=== PATIENT | female | born 1960 | race Caucasian/White ===

== ENCOUNTER 2023-12-16 10:57 | Observation (INO) | payer MEDICARE, SELFPAY ==
[2023-12-16] VITALS (11 sets, daily range): BP systolic 108–146; BP diastolic 64–87; PULSE 84–108; RESP 15–24; TEMP 36.4–36.6; O2SAT 86–96; BMI 19.3
--- NOTE | ~2023-12-16 | XR_ITS ---
Clinical Indication: Shortness of breath PA and lateral views of the chest: Comparison: None Findings: The lungs are clear, without evidence of focal consolidation or pleural effusion. Probable COPD. Cardiomediastinal silhouette is within normal limits. Bones and soft tissues are unremarkable. Impression: Clear lungs. COPD. Reviewed, dictated and finalized at location . Impression: Clear lungs. COPD.
--- NOTE | 2023-12-16 13:19 | ECG_ITS ---
Test Date: 2023-12-16 13:43:38 Measurements Intervals Mack Rate: 78 P: 112 DE: 143 QRS: 111 QRSD: 89 T: 117 QT: 337 QTc: 384 Interpretive Statements SINUS RHYTHM ARM LEADS REVERSED [INVERTED P AND QRS IN I] BASELINE ARTIFACT- I, II, III, AVR, AVL, AVF, V1-V3 ATYPICAL ECG No previous ECG available for comparison Electronically Signed On 12-16-2023 13:48:03 CDT by Taj Fong D.O.
[2023-12-16 13:41] LABS: Basophils Percent Auto 0.2 % (0.2-1.2); Eosinophils Absolute Auto 0.1 K/mm3 (0-0.3); Eosinophils Percent Auto 1.1 % (0-4.4); Hematocrit 43.2 % (37.0-47.0); Hemoglobin 14.3 g/dL (12.0-15.0); Immature Granulocyte Absolute 0.08 K/mm3 (0.00-0.031); Immature Granulocyte Percent A 0.6 % (0-0.5); Lymphocytes Absolute Auto 2.64 K/mm3 (0.9-3.2); Mean Corpuscular HGB Conc 33.1 g/dl (32-36); Mean Corpuscular Hemoglobin 30.3 pg (26-34); Mean Corpuscular Volume 91.5 fl (80-100); Mean Platelet Volume 9.5 fl (7.4-10.4); Monocytes Percent Auto 7.6 % (2.6-8.5); Neutrophils Absolute Auto 8.7 K/mm3 (1.3-6.7); Neutrophils Percent Auto 69.5 % (45.5-73.1); Platelet Count Result 315 k/mm3 (150-375); Red Blood Count 4.72 M/mm3 (4.2-5.4); Red Cell Distribution Width 11.9 % (11.5-14.5); White Blood Count 12.6 K/mm3 (4.5-10.0)
[2023-12-16 13:51] LABS: Glucose Point of Care 115 mg/dl (65-105)
[2023-12-16 13:51] LABS: Alanine Aminotransferase 18 U/L (6-35); Albumin Level 4.1 g/dL (3.5-5.1); Alkaline Phosphatase 69 U/L (38-126); Anion Gap 8 mmol/L (4-12); Aspartate Amino Transferase 25 U/L (14-36); Bilirubin,Total 0.5 mg/dL (0.2-1.3); Blood Urea Nitrogen 14 mg/dL (7-17); Calcium 10.8 mg/dL (8.4-10.2); Carbon Dioxide 33 mmol/L (22-30); Chloride 95 mmol/L (98-107); Estimated CRCL calculation 94 ml/min; Estimated Glomerular Filt Rate > 60; Glucose 115 mg/dL (65-110); Potassium 4.1 mmol/L (3.4-5.0); Sodium 136 mmol/L (137-145)
--- NOTE | 2023-12-16 14:21 | PC.NURSE ---
lunch tray delivered to patient
--- NOTE | 2023-12-16 15:12 | ED.GENADULT ---
HPI - General Adult General Chief complaint: Shortness of Breath/Dyspnea Stated complaint: SOB Time Seen by Provider: 12/16/23 13:42 History of Present Illness HPI narrative: [age] old female presenting to the emergency department for evaluation of worsening shortness of breath. Patient does have a have a history of COPD but does not have a current bolt cutter. Patient does not have oxygen at home. Patient states that approximately 1 month ago she did have some outpatient pulmonary function testing ordered by her primary care physician, she is attempting to be evaluated by a bolt cutter but has not got any calls back. Patient states she is not on any albuterol at home. Patient presents emergency department today complaining of worsening exertional shortness of breath. Patient does appear short of breath at time of evaluation. Related Data Home Medications Medication Instructions Recorded Confirmed atorvastatin 80 mg tablet 80 mg PO DAILY 09/11/22 12/16/23 carvedilol 3.125 mg tablet 3.125 mg PO Q12H 09/11/22 12/16/23 cholecalciferol (vitamin D3) 62.5 5,000 unit PO QPM 09/11/22 12/16/23 mcg (2,500 unit) chewable tablet clopidogrel 75 mg tablet 75 mg PO DAILY 09/11/22 12/16/23 fluticasone 500 mcg-salmeterol 50 1 inh inhalation Q12H 09/11/22 12/16/23 mcg/dose blistr powdr for inhalation (Advair Diskus) multivitamin 1 tablet PO DAILY 09/11/22 12/16/23 ramipril 2.5 mg capsule 2.5 mg PO DAILY 09/11/22 12/16/23 albuterol sulfate 90 mcg/actuation 2 puff inhalation Q4H PRN 12/16/23 12/16/23 aerosol inhaler SOB/wheezing aspirin 81 mg chewable tablet 81 mg PO DAILY 12/16/23 12/16/23 (Aspirin Childrens) Allergies Allergy/AdvReac Type Severity Reaction Status Date / Time No Known Allergies Allergy Verified 12/16/23 19:32 Review of Systems Review of Systems: All systems reviewed & are unremarkable except as noted in HPI and below PMFSH Past Medical History Medical History (Updated 12/16/23 @ 20:47 by Racheal Mayo PA-C) Adhesive capsulitis of right shoulder Cancer Breast Chronic obstructive pulmonary disease Constipation History of breast cancer History of heart attack Positive colorectal cancer screening using Cologuard test Tobacco abuse Surgical History Surgical History History of lumpectomy 2014 Family History Family History Mother Cancer Heart disease Father Cancer Social History Social History Smoking packs per day: 2 Smoking cigarettes per day: 40.0 Years smoked: 50 Smoking pack-years: 100.00 Smoking status: Current every day smoker Tobacco type: cigarettes Alcohol intake: never Substance use type: marijuana Other substance usage details: daily marijuana Do You Feel Safe in your Home?: Yes Lack of Transportation: No Lack of Food: Never True Current Housing: I Have Housing Concerned About Future Housing: No Difficulty Paying Gas/Electric Bills: No Difficulty Paying for Meds: No Currently Unemployed: No Education: High School Diploma/GED Difficulty w/ Childcare or Family Care: No Living arrangements: with friend(s) Spiritual care concerns: No Exam Narrative: APPEARANCE: Uncomfortable appearing HEAD: normocephalic, atraumatic. EYES: PERRLA/EOMI, conjunctivae clear. NOSE: Normal no drainage EARS:TMS clear with good light reflex. THROAT: Pharynx clear, no exudate. NECK: Supple. No adenopathy, no masses. RESPIRATORY: Wheezing in all lung b[place]ude[place], tachypnea CARDIOVASCULAR: Regular rate and rhythm without murmurs rubs or gallops. ABDOMINAL: Soft, nontender, nondistended, normal bowel sounds MUSCULOSKELETAL: Moves all extremities. Strength/ROM intact, No edema, No calf tenderness. NEURO: Alert. Cranial nerves II through XII intact. Good gait. Good coordination
[2023-12-16] MEDS: methylPREDNISolone SOD SUCC 125 MG VIAL IV PUSH (15:20)
[2023-12-16] MEDS: ALBUTEROL SULFATE NEB 2.5 MG/3 ML INH 5 MG INHALATION (15:24)
[2023-12-16 15:58] LABS: Add Urine Microscopic? YES; Appearance Urine Clear (Clear); Bacteria Urine None Seen /hpf; Bilirubin Urine 1+ (Negative); Blood Urine Negative (Negative); Color Urine Dark Yellow (Yellow); Glucose Urine UA Negative (Negative); Ketones Urine Trace mg/dL (Negative); Leukocyte Esterase Ur 1+ LEU/UL (Negative); Nitrate Urine Negative (Negative); Protein Urine 1+ mg/dL (Negative); Specific Grav Ur 1.029 (1.001-1.035); Squamous Epithelial Cell Urine Occasional /hpf (Few); Uric Acid Crystals Urine Present /hpf; WBC Urine 0-5 /hpf (0-3); pH Urine 6.5 (5.0-9.0)
[2023-12-16 16:03] LABS: Influenza A QL RT-PCR Negative (Negative); Influenza B QL RT-PCR Negative (Negative); RSV RNA, RT-PCR Negative (Negative); SARS-CoV-2 RNA PCR Negative (Negative)
[2023-12-16] MEDS: AZITHROMYCIN 500 MG/NS 250 ML 500 MG/250 ML BAG 250 MG IVPB (17:07)
[2023-12-16] MEDS: methylPREDNISolone SOD SUCC 125 MG VIAL 60 MG IV PUSH (18:26)
--- NOTE | 2023-12-16 19:18 | ADMGEN ---
This patient, Lashon Luis, was admitted to [facility] Room 313-01. Patient/family oriented to hospital policies and general routines including ID bracelet, bed and alarms, visiting hours, pain management, procedures, bathroom and other care routines, personal items, smoking policy, room service/diet, and visiting hours. Information on how to activate the Rapid Response Team has been discussed. Patient/Family are encouraged to report perceived risks to care and to ask questions if they do not understand what they are told or what they should do.
--- NOTE | 2023-12-16 20:40 | PM.IMHP ---
H&P: HPI History of Present Illness Date/Time: 12/16/23 20:40 Chief Complaint: Shortness of breath. Narrative: This is a 62-year-old female smoker with chronic obstructive pulmonary disease, hypertension, coronary artery disease, and breast cancer presented to the emergency department via private vehicle for evaluation of shortness of breath. The patient provides the following history. She gives a 1 week history of increasing dyspnea on lesser and lesser exertion, wheezing, and an increase in cough which is productive of light green sputum. She has been using her rescue inhaler with lesser and lesser benefit and she is now getting short of breath even when going about the home. She denies fever, chills, sweats, chest and pleuritic pain, palpitations, orthopnea, lower extremity edema, calf pain, nausea, vomiting, and sweats. In the ED: She was afebrile on arrival with stable blood pressures. SpO2 has been as low as the upper 80s and she is currently on 2 L nasal cannula. Labs are significant for WBC count of 12.6, hemoglobin 14.3, sodium 136, chloride 95, BUN 14, creatinine 0.50, carbon dioxide 33. She tested negative for influenza, RSV, and COVID. Chest x-ray shows evidence of COPD but no acute findings. She was given azithromycin, ceftriaxone, methylprednisone, and a nebulizer treatment and she is being admitted in this setting for further treatment. Review of Systems Review of Systems: 12 systems were reviewed and are negative except for as per HPI. [facility] Past Medical History Medical History (Updated 12/16/23 @ 22:35 by Racheal Mayo PA-C) Breast cancer Chronic obstructive pulmonary disease Coronary artery disease Positive colorectal cancer screening using Cologuard test Tobacco abuse Surgical History Surgical History (Updated 12/16/23 @ 22:35 by Racheal Mayo PA-C) History of coronary artery stent placement History of lumpectomy 2013 Family History Family History Mother Cancer Heart disease Father Cancer Social History Social History (Updated 12/16/23 @ 22:35 by Racheal Mayo PA-C) Social History: Surrogate medical decision maker: Jesika Cade, sister. Code status: Full code. Smoking packs per day: 2 Smoking cigarettes per day: 40.0 Years smoked: 50 Smoking pack-years: 100.00 Smoking status: Current every day smoker Tobacco type: cigarettes Alcohol intake: never Substance use type: marijuana Other substance usage details: daily marijuana Do You Feel Safe in your Home?: Yes Lack of Transportation: No Lack of Food: Never True Current Housing: I Have Housing Concerned About Future Housing: No Difficulty Paying Gas/Electric Bills: No Difficulty Paying for Meds: No Currently Unemployed: No Education: High School Diploma/GED Difficulty w/ Childcare or Family Care: No Living arrangements: with friend(s) Spiritual care concerns: No Meds Home Medications and Allergies Home Medications Medication Instructions Recorded Confirmed Type atorvastatin 80 mg tablet 80 mg PO DAILY 09/11/22 12/16/23 History carvedilol 3.125 mg tablet 3.125 mg PO Q12H 09/11/22 12/16/23 History cholecalciferol (vitamin D3) 62.5 5,000 unit PO QPM 09/11/22 12/16/23 History mcg (2,500 unit) chewable tablet clopidogrel 75 mg tablet 75 mg PO DAILY 09/11/22 12/16/23 History fluticasone 500 mcg-salmeterol 50 1 inh inhalation Q12H 09/11/22 12/16/23 History mcg/dose blistr powdr for inhalation (Advair Diskus) multivitamin 1 tablet PO DAILY 09/11/22 12/16/23 History ramipril 2.5 mg capsule 2.5 mg PO DAILY 09/11/22 12/16/23 History albuterol sulfate 90 mcg/actuation 2 puff inhalation Q4H PRN 12/16/23 12/16/23 History aerosol inhaler SOB/wheezing aspirin 81 mg chewable tablet 81 mg PO DAILY 12/16/23 12/16/23 History (Aspirin Childrens) Allergies Allergy/AdvReac Type Severity Reaction Status Date /
[2023-12-17] VITALS (19 sets, daily range): BP systolic 125–131; BP diastolic 55–70; PULSE 80–94; RESP 16–22; TEMP 36.5–36.9; O2SAT 92–100; BMI 19.3
[2023-12-17] MEDS: methylPREDNISolone SOD SUCC 125 MG VIAL 60 MG IV PUSH ×4 (00:54→21:43)
[2023-12-17] MEDS: carvediloL 3.125 MG TABLET PO ×3 (00:54→21:44)
[2023-12-17] MEDS: ALBUTEROL SULFATE NEB 2.5 MG/3 ML INH INHALATION ×3 (02:33→13:34)
[2023-12-17 07:26] LABS: Hematocrit 39.2 % (37.0-47.0); Hemoglobin 12.9 g/dL (12.0-15.0); Mean Corpuscular HGB Conc 32.9 g/dl (32-36); Mean Corpuscular Hemoglobin 30.6 pg (26-34); Mean Corpuscular Volume 93.1 fl (80-100); Mean Platelet Volume 9.5 fl (7.4-10.4); Platelet Count Result 305 k/mm3 (150-375); Red Blood Count 4.21 M/mm3 (4.2-5.4); Red Cell Distribution Width 11.9 % (11.5-14.5); White Blood Count 9.5 K/mm3 (4.5-10.0)
[2023-12-17 07:35] LABS: Anion Gap 5 mmol/L (4-12); Blood Urea Nitrogen 15 mg/dL (7-17); Calcium 9.7 mg/dL (8.4-10.2); Carbon Dioxide 32 mmol/L (22-30); Chloride 99 mmol/L (98-107); Estimated CRCL calculation 91 ml/min; Estimated Glomerular Filt Rate > 60; Glucose 162 mg/dL (65-110); Potassium 4.6 mmol/L (3.4-5.0); Sodium 136 mmol/L (137-145)
[2023-12-17] MEDS: MULTIVITAMINS THERAPEUTIC TAB (*BKC) 1 TABLET PO (08:03)
[2023-12-17] MEDS: CLOPIDOGREL BISULFATE 75 MG TABLET PO (08:03)
[2023-12-17] MEDS: ASPIRIN 81 MG CHEWABLE TABLET PO (08:03)
[2023-12-17] MEDS: ATORVASTATIN 40 MG TABLET 80 MG PO (08:03)
--- NOTE | 2023-12-17 10:43 | PM.IMPN ---
Progress Note: A&P Assessment and Plan (1) Acute hypoxic respiratory failure: Code(s): J96.01 - Acute respiratory failure with hypoxia Status: Acute Assessment and Plan: 12/17/23: Likely due to COPD exacerbation She was given 125 mg IV push of Solu-Medrol Will continue Solu-Medrol 60 mg IV push Q 8 hour DC albuterol neb treatments Start Duonebs q6h Continue azithromycin Wean O2 for sat greater than 92% Will start Singulair, Claritin, and Flonase today for prevention Patient refuses COVID, Flu, pneumonia and RSV vaccines however patient was educated on risk of these illnesses with her known lung disease history Pulmonology consulted for further assistance and close follow up outpatient Will need nebulizer with duoneb treatments at home as well as home O2 evaluation, possibly nocturnal O2 requirements. Pulmonary rehab will need to be ordered upon discharge. (2) Acute exacerbation of chronic obstructive pulmonary disease: Code(s): J44.1 - Chronic obstructive pulmonary disease with (acute) exacerbation Status: Acute Assessment and Plan: See above plan of care (3) Acute UTI: Code(s): N39.0 - Urinary tract infection, site not specified Status: Acute Assessment and Plan: 12/17/23: UA showing 1+ urine protein, trace ketone, 1+ urine bilirubin, 1+ leukocyte, 6-10 urine RBC Urine culture pending Continue Rocephin for now (4) Tobacco abuse: Code(s): Z72.0 - Tobacco use Status: Acute Assessment and Plan: 12/17/23: Current every day smoker, smokes 2 packs per day x 50 years Educated on smoking cessation (5) Coronary artery disease: Code(s): I25.10 - Atherosclerotic heart disease of [place] coronary artery without angina pectoris Status: Acute Assessment and Plan: 12/17/23: Continue aspirin, atorvastatin, Plavix Time Spent With Patient Time with patient: Greater than 35 minutes Subjective Date/time seen: 12/17/23 10:43 Interval history: Interval history: This is a 62-year-old female with a significant past medical history of COPD, current every day smoker who presented to the hospital on 12/16/2023 with complaints of shortness of breath. Workup in the hospital included chest x-ray shows COPD. Initial labs showed a white blood cell count of 12.6, sodium 136, chloride 95, otherwise unremarkable. UA was obtained which showed 1+ urine protein, trace ketone, 1 urine bilirubin, 1+ leukocyte, 6-10 urine RBC. Respiratory panel was negative for influenza a and B, RSV, COVID. Urine culture was obtained and is pending. EKG showed sinus rhythm at the rate of 78, QTC 384. Patient was started on Rocephin and azithromycin, given 125 mg IV push of Solu-Medrol, and received a breathing treatment while in the ED. Subjective: Patient denies any fever, chills, nausea, vomiting, diarrhea, abdominal pain, chest pain. Patient endorses shortness of breath for the past week when she came down with upper respiratory infection. She only has an albuterol inhaler at home and was not finding any relief with use. She does not follow with a stationary equipment mechanic currently. She denies having a nebulizer at home or on any medications for allergies. She states she refuses to get vaccinations such as COVID, Flu, pneumonia, RSV. She admits to a long smoking history and has failed smoking cessation in the past. She is up to 2 packs per day which likely contributes to her exacerbations. Currently she is on 1.5 L nasal cannula. Labs and imaging reviewed. Review of Systems Review of Systems: All systems reviewed & are unremarkable except as noted in HPI and below Constitutional: Constitutional: Reports as per HPI and Reports no additional constitutional complaints Eyes: Eyes: Reports as per HPI and Reports no additional eye complaints ENT: Reports system reviewed and no additional complaints, except as documented and Reports as per HPI Cardiovascular: Cardiovascular: Re
[2023-12-17] MEDS: AZITHROMYCIN 250 MG TABLET 500 MG PO (12:07)
--- NOTE | 2023-12-17 13:24 | P.CDI_ITS ---
CDI Query Clarification Request BMI: 19.3 Nutritional Diagnostic Statement: Please refer to the comprehensive nutrition assessment for further information. If you agree with diagnosis of Moderate protein calorie malnutrition related to inadequate energy intake and increased energy needs in the setting of COPD as evidenced by pt report of reduced po intake for greater than 1 month, a reported -10% wt loss x 6 months, and NFPE findings of moderate subcutaneous fat loss (cheeks) and moderate muscle wasting (temples). Please specify severity if known: * Mild * Moderate * Severe * Other/Unknown <Aleida Devries RN - Last Filed: 12/17/23 13:24> Clarified Diagnosis Clarified Diagnosis: Moderate <Elisa Vaughn APRN - Last Filed: 12/17/23 13:48>
[2023-12-17] MEDS: LORATADINE 10 MG TABLET PO (15:11)
--- NOTE | 2023-12-17 15:44 | PM.CNPUL ---
Assessment and Plan Assessment and plan (1) Acute hypoxic respiratory failure: Code(s): J96.01 - Acute respiratory failure with hypoxia Status: Acute (2) Acute exacerbation of chronic obstructive pulmonary disease: Code(s): J44.1 - Chronic obstructive pulmonary disease with (acute) exacerbation Status: Acute Assessment and Plan: 62-year-old female with a known history of advanced COPD presented with shortness of breath related to COPD exacerbation. Apparently, this is her first hospitalization for COPD exacerbation. The patient is currently improving on IV steroids, antibiotics, and short-acting bronchodilators. I agree with the current regimen. On physical exam, she continues to have lung hyperinflation and wheezing. Plan: Continue with the current treatment. Reassess the patient in the morning and decide when to discharge home. The patient will need outpatient evaluation with pulmonary function testing for advanced COPD. (3) COPD (chronic obstructive pulmonary disease): Code(s): J44.9 - Chronic obstructive pulmonary disease, unspecified Status: Acute (4) Tobacco use: Code(s): Z72.0 - Tobacco use Status: Acute History of Present Illness History of Present Illness Consult date: 12/17/23 Chief complaint: COPD Exacerbation Narrative: This 62-year-old female with a known history of COPD presented with progressively increasing shortness of breath of one week duration. The patient was diagnosed with COPD more than five years ago while living in [place]. She had been on Advair 500/50 for maintenance bronchodilation for chronic shortness of breath. Over the last week, her shortness of breath became more intense, also accompanied by a cough with clear sputum production and wheezing. Most recently, she underwent pulmonary function testing at a doctor's office, but the results are not available for review. She has been diagnosed with a COPD exacerbation and has been receiving treatment with IV steroids and azithromycin. She stated that her breathing seems to be getting better, although she is not yet back to baseline. Her past medical history is also significant for hypertension and a history of breast cancer diagnosed in 2013, treated with lumpectomy and radiation therapy. The patient has been a smoker for most of her life, smoking two packs per day. She has no other exposure to harmful inhalants. Upon questioning she denied having history of previous hospitalizations for COPD exacerbation or history of recurrent bronchitis for which she received steroids. Review of Systems Review of Systems: Patient reports no previous history of allergic rhinitis or history of asthma. She has constipation. She has no urinary complaints. She has no history lower extremity edema. The remainder of the 12 point system review is negative [facility] Past Medical History Medical History (Updated 12/17/23 @ 11:06 by Elisa Vaughn APRN) Breast cancer Chronic obstructive pulmonary disease Coronary artery disease Positive colorectal cancer screening using Cologuard test Tobacco abuse Surgical History Surgical History (Updated 12/16/23 @ 22:35 by Racheal Mayo PA-C) History of coronary artery stent placement History of lumpectomy 2013 Family History Family History Mother Cancer Heart disease Father Cancer Social History Social History (Updated 12/16/23 @ 22:35 by Racheal Mayo PA-C) Social History: Surrogate medical decision maker: Jesika Rayo, sister. Code status: Full code. Smoking packs per day: 2 Smoking cigarettes per day: 40.0 Years smoked: 50 Smoking pack-years: 100.00 Smoking status: Current every day smoker Tobacco type: cigarettes Alcohol intake: never Substance use type: marijuana Other substance usage details: daily marijuana Do You Feel Safe in your Home?: Yes Lack of Transportatio
[2023-12-17] MEDS: CHOLECALCIFEROL 5,000 UNITS TABLET 5000 UNITS BY MOUTH (17:28)
[2023-12-17] MEDS: FLUTICASONE/SALMETEROL 230-21 MCG INHALER 1 PUFF 2 PUFF INHALATION (20:20)
[2023-12-17] MEDS: IPRATROPIUM 0.5 MG/ALBUTEROL SULFATE 2.5 MG AMPUL.NEB 3 ML INHALATION (20:20)
[2023-12-17] MEDS: FLUTICASONE PROPIONATE 0.05% NA SPR 16 GM BTL (*BKC) 1 SPRAY NASAL (21:44)
[2023-12-17] MEDS: MONTELUKAST SODIUM 10 MG TABLET PO (21:44)
[2023-12-17] MEDS: CALCIUM CARBONATE (TUMS) 500 MG (200 MG ELEMENTAL) PO (23:13)
[2023-12-18] VITALS (11 sets, daily range): BP systolic 132–138; BP diastolic 62–75; PULSE 74–95; RESP 18–20; TEMP 36.4–36.6; O2SAT 92–100
[2023-12-18] MEDS: IPRATROPIUM 0.5 MG/ALBUTEROL SULFATE 2.5 MG AMPUL.NEB 3 ML INHALATION ×3 (01:43→13:54)
[2023-12-18] MEDS: methylPREDNISolone SOD SUCC 125 MG VIAL 60 MG IV PUSH (06:17)
[2023-12-18] MEDS: FLUTICASONE/SALMETEROL 230-21 MCG INHALER 1 PUFF 2 PUFF INHALATION (07:39)
[2023-12-18] MEDS: AZITHROMYCIN 250 MG TABLET 500 MG PO (09:17)
[2023-12-18] MEDS: carvediloL 3.125 MG TABLET PO (09:17)
[2023-12-18] MEDS: CLOPIDOGREL BISULFATE 75 MG TABLET PO (09:17)
[2023-12-18] MEDS: ASPIRIN 81 MG CHEWABLE TABLET PO (09:17)
[2023-12-18] MEDS: ATORVASTATIN 40 MG TABLET 80 MG PO (09:17)
[2023-12-18] MEDS: LORATADINE 10 MG TABLET PO (09:18)
[2023-12-18] MEDS: MULTIVITAMINS THERAPEUTIC TAB (*BKC) 1 TABLET PO (09:18)
[2023-12-18] MEDS: FLUTICASONE PROPIONATE 0.05% NA SPR 16 GM BTL (*BKC) 1 SPRAY NASAL (09:21)
--- NOTE | 2023-12-18 10:57 | PM.PNPUL ---
Progress Note: A&P Assessment and Plan (1) Acute hypoxic respiratory failure: Code(s): J96.01 - Acute respiratory failure with hypoxia Status: Acute (2) Acute exacerbation of chronic obstructive pulmonary disease: Code(s): J44.1 - Chronic obstructive pulmonary disease with (acute) exacerbation Status: Acute Assessment and Plan: This 62-year-old female with a long history of smoking presented with progressively increasing shortness of breath of one week's duration. She has been diagnosed and treated for a COPD exacerbation. The patient seems to be responding to IV steroids and nebulized short-acting bronchodilators. Her respiratory status has improved over the last 24 hours, although she continues to have some wheezing, especially expiratory. Plan: It is okay to discharge the patient home on the following regimen. Prednisone 40 mg daily for 3 days, then prednisone 30 mg daily for 3 days, then 20 mg daily for 3 days, then prednisone 10 mg daily for 3 days. I would use a triple inhaler like Trelegy 100 daily, or Breztri inhaler bid to replace her Advair 500/50. She will continue with the nebulized short-acting bronchodilator such as albuterol and will also need to be evaluated for home oxygen. The patient was advised to call the Pulmonary Clinic and make an appointment to be seen in approximately 2-3 weeks from today. I provided the patient with a business card to make the appointment. At this point, I will sign off. Please call with any questions. (3) Chronic obstructive pulmonary disease: Code(s): J44.9 - Chronic obstructive pulmonary disease, unspecified Status: Acute Subjective Date/time seen: 12/18/23 10:57 Interval history: Patient stated she is doing better. She still has wheezing but less than before. No other respiratory symptoms. She remains on supplemental oxygen via nasal cannula. Review of Systems Review of Systems: All systems reviewed & are unremarkable except as noted in HPI and below (HPI and below) Exam Narrative: GENERAL APPEARANCE: Well developed, well nourished, alert and cooperative, and appears to be in no acute distress while on supplemental oxygen via nasal SKIN: Inspection of the skin reveals no rashes, ulcerations or petechiae. HEENT: Sclerae anicteric and conjunctivae pink and moist. Extraocular movements were intact and pupils were equal, round, and reactive to light. The oral mucosa, hard and soft palate, tongue and posterior pharynx were normal. NECK: Supple. There was no thyroid enlargement, and no tenderness, or masses were felt. CHEST: Increased AP with no kyphoscoliosis LUNGS: Over inflated lungs, mild wheezing bilaterally especially during expiration, less than yesterday CARDIAC: There was a regular rate and rhythm without any murmurs, gallops, rubs. ABDOMEN: Soft and nontender with normal bowel sounds. There was no organomegaly. LYMPH NODES: No lymphadenopathy was appreciated in the neck. EXTREMITIES: No cyanosis, clubbing or edema. NEUROLOGIC: Alert and oriented x 3. Normal affect. Objective Data Vital Signs Vital Signs: Vital Signs - 24 hr 12/17/23 12:14 12/17/23 12:14 12/17/23 13:36 Temperature Pulse Rate 87 Respiratory Rate 20 Blood Pressure Pulse Oximetry 98 96 Oxygen Delivery Nasal Cannula Nasal Cannula Oxygen Flow Rate 1.5 1 12/17/23 13:53 12/17/23 14:00 12/17/23 20:21 Temperature 36.9 C Pulse Rate 92 87 92 Respiratory Rate 20 22 H 20 Blood Pressure 131/70 Pulse Oximetry 100 Oxygen Delivery Oxygen Flow Rate 12/17/23 20:32 12/17/23 20:33 12/17/23 20:57 Temperature 36.8 C Pulse Rate 90 91 Respiratory Rate 20 20 Blood Pressure 129/65 Pulse Oximetry 96 98 Oxygen Delivery Nasal Cannula Oxygen Flow Rate 2 12/17/23 21:44 12/17/23 20:00 12/18/23 01:43 Temperature Pulse Rate 93 86 Respiratory Rate 20 Blood Pressure Pulse Oximetry 92 Oxygen Delivery Nasal Cannula
--- NOTE | 2023-12-18 17:32 | HOMEO2EVAL ---
Evaluation was performed at [facility] Home Oxygen Evaluation RC: Home Oxygen (O2) Evaluation Start: 12/18/23 16:24 Freq: ONCE Status: Active Protocol: RPE Activity Type Activity Date Activity User E-sign Co-sign Detail Recorded Client Recorded Date Recorded By Document 12/18/23 17:15 CLC [email or web address] 12/18/23 17:31 CLC Document 12/18/23 17:20 CLC [email or web address] 12/18/23 17:31 CLC 12/18/23 12/18/23 17:15 17:20 Home O2 Evaluation [Oxygen] -Test Phase Resting Exercise -Oxygen Delivery Room Air Room Air [Pulse Oximetry] -Pulse Oximetry (90-100 %) 96 92 [Pulse Rate] -Pulse Rate (60-100 beats/min) 81 95 [Evaluation] -Activity Tolerance Excellent [Exercise] -Ambulation Distance (feet) 300 -Ambulation Distance (meters) 91.43 [Comments] -Home Oxygen Evaluation Comments Patient requires no home oxygen [Charges] -Evaluation Charges O2 Evaluation by SAHRA
--- NOTE | 2023-12-18 17:32 | PCRCNOTE ---
Home oxygen evaluation complete. Patient requires no home oxygen.
--- NOTE | 2023-12-18 17:54 | PM.DS ---
DS: Admitting Diagnosis Discharge Date 12/18/23 Admitting Diagnosis Hypoxia acute exacerbation of chronic obstructive pulmonary disease tobacco abuse coronary artery disease DS: Discharge Diagnosis Discharge Diagnosis (1) Acute hypoxic respiratory failure: Code(s): J96.01 - Acute respiratory failure with hypoxia Status: Acute (2) Acute exacerbation of chronic obstructive pulmonary disease: Code(s): J44.1 - Chronic obstructive pulmonary disease with (acute) exacerbation Status: Acute (3) Acute UTI: Code(s): N39.0 - Urinary tract infection, site not specified Status: Acute (4) Tobacco abuse: Code(s): Z72.0 - Tobacco use Status: Acute (5) Coronary artery disease: Code(s): I25.10 - Atherosclerotic heart disease of [place] coronary artery without angina pectoris Status: Acute DS: Summary Hospital Course Reason for hospitalization: Hypoxia acute exacerbation of chronic obstructive pulmonary disease tobacco abuse coronary artery disease Hospital Course: This is a 62-year-old female who presented to the hospital on 12/16/2023 with complaints of shortness of breath, cough, wheezing for approximately 1 week, hypoxia requiring oxygen. Patient has history of COPD and is a current 2 pack per day smoker. Workup in the hospital included a chest x-ray which shown COPD otherwise clear lungs. Initial labs showed a white blood cell count of 12.6, sodium 136, chloride 95. UA was obtained and showed 1+ urine protein, trace ketones, 1+ urine bili, 1+ leukocytes, 6-10 urine RBC. Respiratory panel was negative for influenza a and B, RSV, COVID. Urine culture was obtained and was negative for any bacteria. She was initially started on Rocephin and then was discontinued with urine culture results. 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 In addition to his recommendations we also started her on Claritin, Singulair, Flonase which was also discussed and will need to be continued on an outpatient basis. She will finish a course of azithromycin. All these changes were discussed with the patient extensively. She is back to room air , her vital signs are stable, she is afebrile. She is stable for discharge today and will need to follow up with pulmonology in 2-3 weeks. Pulmonary rehab was also ordered for her. Final diagnosis: Acute hypoxic respiratory failure, Acute on chronic COPD exacerbation Status at Discharge Cognitive/behavioral status at discharge: Alert oriented x4 Functional status at discharge: independent ambulation Overall status at discharge: patient is progressing back to baseline Time Spent with Patient Time attestation: Total time spent providing and/or coordinating discharge services: Time spent: Greater than 30 minutes Exam Narrative: General: In no acute distress Cardiac: Normal S1 and S2. No murmur, gallops or friction rubs, peripheral pulses intact. Respiratory: Currently on room air, expiratory wheezing noted Neuro: Alert and oriented x4 DS: Data Data Completed and Pending Completed studies during hospitalization: Chest x-ray Pending studies at discharge: None Procedures/Treatments: None Discharge Plan Discharge Attending physician on discharge: Omaira Aaron Consulting providers: Elisa Vaughn; Ben Ca; Racheal Mayo Rafe M.; Carlos Kaplan Discharging Clinician: Elisa Vaughn Anticipated Discharge Date/Time: 12/18/23 17:23 Patient Disposition: Home, Self-Care Activity: as tolerated Diet: as tolerated Discharge Instructions: Patient to call Department of Aging to have evaluation to see if qualifi
== END 2023-12-18 19:00 | disposition home or self-care (01) ==
LOC: ANHED 17:01 → ANH3MEDSUR 19:30
PROVIDERS: Physician Assistant; Admitting Provider General Practice; Emergency Provider Emergency Medicine; PCP Nurse Practitioner; Visit Provider Family Medicine
DX: J44.1 Chronic obstructive pulmonary disease with (acute) exacerbation (principal); J96.01 Acute respiratory failure with hypoxia; N39.0 Urinary tract infection, site not specified; F17.210 Nicotine dependence, cigarettes, uncomplicated; I25.10 Atherosclerotic heart disease of native coronary artery without angina pectoris; I10 Essential (primary) hypertension; Z79.82 Long term (current) use of aspirin; Z79.899 Other long term (current) drug therapy; Z20.822 Contact with and (suspected) exposure to COVID-19; Z85.3 Personal history of malignant neoplasm of breast; Z95.5 Presence of coronary angioplasty implant and graft
CPT/HCPCS: 36415; 71046; 80048; 80053; 81001; 82948; 83735; 85025; 85027; 87086; 87088; 87637; 93005; 94618; 94640; 96365; 96367; 96375; 96376; 99285; A9270; G0378; J0456; J0696; J2919

== ENCOUNTER 2024-06-16 23:31 | Emergency (ER) | payer MEDICARE, SELFPAY ==
--- NOTE | ~2024-06-16 | XR_ITS ---
CHEST RADIOGRAPH, PA AND LATERAL CLINICAL HISTORY: SOB HX OF COPD . COMPARISON: 12/16/2023 TECHNIQUE: PA and lateral views of the chest. FINDINGS The cardiomediastinal silhouette is unremarkable. The lungs are clear. Visualized osseous structures and soft tissues are unremarkable. IMPRESSION: No focal infiltrate or effusion. Reviewed, dictated and finalized at location A.
--- OUTSIDE RECORDS SUMMARY | 2024-06-16 23:33 | XMS_ITS | Clinical Summary ---
Author Organization [facility] Address [facility] [address] [place] [address] Care Team Providers Care Deputy Head Name Role Phone Argelia Nathan MD Primary Care Provider [phone] Allergies No known active allergies Medications atorvastatin 80 MG tablet 06/06/19 22 Active carvedilol 3.125 MG tablet 06/06/19 22 Active clopidogrel 75 MG tablet 06/06/19 22 Active cyclobenzaprin e 10 MG tablet cyclobenzaprine 10 mg tablet Active fluticasone-sa lmeterol (ADVAIR DISKUS) 500-50 MCG/DOSE inhaler Active ramipril 2.5 MG capsule ramipril 2.5 mg capsule Active traMADol 50 MG tablet 06/16/19 22 Active Family History Medical History Relation Comments No Known Problems Father No Known Problems Mother Relation Status Comments Father Mother Social History Tobacco Use Types Packs/Day Years Used Date Smoking Tobacco: Every Day Cigarettes Smokeless Tobacco: Never Tobacco Cessation:Ready to Q uit: No; Counseling Given: No Alcohol Use Standard Drinks/Week Comments Never 0 (1 standard drink = 0.6 oz pur e alcohol) Comments Unknown Sex and Gender Information Value Date Recorded Sex Assigned at Not on file Legal Sex Female 3:28 PM CDT Gender Identity Not on file Sexual Orientation Not on file Last Filed Vital Signs Vital Sign Reading Time Taken Comments Blood Pressure 134/89 06/27/2021 9:24 AM CDT Pulse 87 06/27/2021 9:16 AM CDT Temperature 35.3 C (95.6 F) 06/27/2021 9:16 AM CDT Respiratory Rate - - Oxygen Saturation 95% 06/27/2021 9:16 AM CDT Inhaled Oxygen Concentration - - Weight 69.9 kg (154 lb) 06/27/2021 9:16 AM CDT Height 177.8 cm (5' 10 ) 06/27/2021 9:16 AM CDT Body Mass Index 22.1 06/27/2021 9:16 AM CDT Plan of Treatment Health Maintenance Due Date Last Done Comments Colorectal Cancer Screening Colonoscopy (10 Years) 1960 Pneumococcal Vaccine: 65+ Ye ars (1 of 2 - PCV) 1964 Pneumococcal Vaccine: Pediat rics (0 to 5 Years) and At-Risk Patients (6 to 64 Years) (1 of 2 - PCV) 1964 Hepatitis C 1976 Mammogram Screening 1998 Zoster Vaccines (1 of 2) 2008 COVID-19 Vaccine ( - 2023-2 5 season) 2023 DTaP, Tdap and Td Vaccines ( 2 - Td or Tdap) 03/06/2026 03/06/2016 RSV Immunization or 60+ Years (1 - 1-dose 75+ series) 2033 Dexa Scan (General) Completed 08/22/2020 Meningococcal B Vaccine Aged Out No l onger eligible based on patient's age to complete this topic Meningococcal Vaccine Aged Out No tiesha skyler eligible based on patient's age to complete this topic RSV Immunizations Under 20 Months Aged Out No longer eligible based on patient's age to complete this topic Insurance [facility] [place] [address] Care Teams Deputy Head Relationship Specialty Start Date End Date Argelia Nathan MD [address] [place] [address] PCP - General INTERNAL MEDICINE 06/21/21
--- OUTSIDE RECORDS SUMMARY | 2024-06-16 23:33 | XMS_ITS | Data Portability ---
Author Organization [facility] Trena HARDY Address [address] [place] [address] Care Team Providers Care Ditch Repairer Name Role Phone ARGELIA HARRIS Primary Care Provider Unavailabl e Assessment No assessment recorded. Plan of Treatment Reminders Order Date Submit Date Provider Last Modified By Organization Details Last Modified Time Details Appointments None recorded. Lab TSH, ultra-sensi tive, serum 2022 023 THANIA BRITTANI, [address] [place] [address], [address] [address], [place], [address], 10:12:31 CBC 2022 023 THANIA PETER, [address] [place] [address], [address] [address], [place], [address], 06:17:52 lipid panel, serum 2022 023 THANIA PETER, [address] [place] [address], [address] [address], [place], [address], 06:17:50 CMP, serum or plasma 2022 023 THANIA PETER, [address] [place] [address], [address] [address], [place], [address], 06:17:51 HbA1c (hemoglobin A1c), blood 2021 022 THANIA PETER, [address] [place] [address], [address], [place], [address], 2 08:17:08 CMP, serum or plasma 2021 022 [facility], [address], [address], [place], [address], 2 08:17:04 CBC 2021 022 [facility], [address], [address], [place], [address], 2 08:17:05 lipid panel, serum 2021 022 [facility], [address], [address], [place], [address], 2 08:17:07 Referral gastroenter ologist referral 2023 024 helena Duncan MD, [address], [address], [place], [address], 4 15:51:13 orthopedic surgeon referral - Pt would prefer appointment at [facility], please contact for appt (referral waived until 06-30-21) 2021 022 [place] Rodney Mccann, [address] [facility], [address], [place], [address], 2 11:13:28 Procedures None recorded. Surgeries None recorded. Imaging MAMMO, screening, bilateral 2022 023 [facility] ([facility]), [address] [place], [address], 4 16:12:34 Medication Orders carvedilol 3.125 mg tablet 2022 023 [place] [facility], [address] [place], [place], [id number], 4 17:47:21 ramipril 2.5 mg capsule 2022 023 [facility], [address] [place] [address], [id number], 4 17:47:22 clopidogrel 75 mg tablet 2022 023 [facility], [address] [place] [address], [id number], 4 17:47:22 atorvastati n 80 mg tablet 2022 023 [facility], [address] [place] [address], [id number], 4 15:52:47 Advair Diskus 500 mcg-50 mcg/dose powder for inhalation 2022 023 [facility], [address] [place] [address], [id number], 3 16:45:42 tramadol 50 mg tablet [address] [facility], [address] [place] [address], [id number], 3 13:35:00 ramipril 2.5 mg capsule 2021 022 [facility], [address] [place] [address], [id number], 2 16:41:30 carvedilol 3.125 mg tablet 2021 022 [facility], [address] [place] [address], [id number], 2 16:41:31 Advair Diskus 500 mcg-50 mcg/dose powder for inhalation 2021 022 [facility], [address] [place] [address], [id number], 16:41:31 Symbicort 160 mcg-4.5 mcg/actuati on HFA aerosol inhaler 2021 022 [facility], [address] [place] [address], [id number], 16:41:31 atorvastati n 80 mg tablet 2021 022 [facility], [address] [place] [address], [id number], 16:41:31 clopidogrel 75 mg tablet 2021 022 [facility], [address] [place] [address], [id number], 16:41:30 tramadol 50 mg tablet [address], [address] [place] [address], [id number], 13:35:00 Patient TargetsNo targets recorded. Patient Instructions Encounter Date Encounter Id Patient Instructions Last Modified By Organization Details Last Modified Time 04/10/2022 [id number] learning about high blood sugar [email or web address] Not available 04/10/2022 13:36:00 learning about high blood pressure [email or web address] Not available 04/10/2022 13:36:00 high cholesterol : care instructions [email or web address] Not available 04/10/2022 13:36:00 12/26/2022 [id number] A healthy lifestyle: care instructions [email or web address] Not available 12/26/2022 16:08:03 learning about breast cancer screening [email or web address] Not available 12/26/2022 16:11:30 07/17/2023 [id number] chronic obstructive pulmonary disease (COPD): care instructions [email or web address] Not available 07/17/2023 15:38:33 learning about copd and how to prevent lung infections [email or web address] Not available 07/17/2023 15:38:33 Reason for Referral Orthopedic Surgeon Referral for Pain of right shoulder blade Pain in R shoulder blade and upper arm Pt would prefer appointment at [place] [facility] Pt would prefer appointment at [facility] [facility], please contact for appt (referral waived until 06-30-21) Referring Physician: Argelia Harris, Internal Medicine, Encounter Date: 06/15/2021 [place] Referral for Hematochezia Hematochezia Referring Physician: Argelia Harris, Internal Medicine, Encounter Date: 07/17/2023 Results Created Date Observation Date Name Description Value Unit Range Abnormal Flag Note LastModifiedBy Organization Detail LastModifiedTime 08/23/19 22 08/22/2021 COLOG UARD cologuard result Cancel led - Order d not applic able Not Available [facility] (Cologuard Orders Only) [address], [place], [address], 08/22/2021 06:55:49 09/06/19 22 09/06/2021 COMP. METAB OLIC PANEL (14) glucose 97 mg/dL 65-99 Not Available [facility] ([facility]) [address] [place], [address], 09/06/2021 08:17:04 09/06/19 22 09/06/2021 COMP. METAB OLIC PANEL (14) BUN 14 mg/dL 8-27 Not Available [facility] ([facility]) [address] [place], [address], 09/06/2021 08:17:04 09/06/19 22 09/06/2021 COMP. METAB OLIC PANEL (14) creatinine 0.72 mg/dL 0.57-1 .00 Not Available [facility] ([facility]) [address] [place], [address], 09/06/2021 08:17:04 09/06/19 22 09/06/2021 COMP. METAB OLIC PANEL (14) eGFR 94 mL/mi n/1.7 3 >59 Not Available [facility] ([facility]) [address] [place], [address], 09/06/2021 08:17:04 09/06/19 22 09/06/2021 COMP. METAB OLIC PANEL (14) BUN/creatini ne ratio 19 12-28 Not Available [facility]) [address] [place], [address], 09/06/2021 08:17:04 09/06/19 22 09/06/2021 COMP. METAB OLIC PANEL (14) sodium 142 mmol/ L 134-14 4 Not Available [facility] ([facility]) [address] [facility] [place], [address], 09/06/2021 08:17:04 09/06/19 22 09/06/2021 COMP. METAB OLIC PANEL (14) potassium 4.7 mmol/ L 3.5-5. 2 Not Available [facility] ([facility]) [address] [facility] [place], [address], 09/06/2021 08:17:04 09/06/19 22 09/06/2021 COMP. METAB OLIC PANEL (14) chloride 101 mmol/ L 96-106 Not Available [facility] ([facility]) [address] [facility] [place], [address], 09/06/2021 08:17:04 09/06/19 22 09/06/2021 COMP. METAB OLIC PANEL (14) carbon dioxide, total 28 mmol/ L 20-29 Not Available [facility] ([facility]) [address] [facility] [place], [address], 09/06/2021 08:17:04 09/06/19 22 09/06/2021 COMP. METAB OLIC PANEL (14) calcium 11.0 mg/dL 8.7-10 .3 above high normal Not Available [facility] ([facility]) [address] [facility] [place], [address], 09/06/2021 08:17:04 09/06/19 22 09/06/2021 COMP. METAB OLIC PANEL (14) protein, total 6.9 g/dL 6.0-8. 5 Not Available [facility] ([facility]) [address] [facility], [place], [address], 09/06/2021 08:17:04 09/06/19 22 09/06/2021 COMP. METAB OLIC PANEL (14) albumin 4.7 g/dL 3.8-4. 8 Not Available [facility] ([facility]) [address], [place], [address], 09/06/2021 08:17:04 09/06/19 22 09/06/2021 COMP. METAB OLIC PANEL (14) globulin, total 2.2 g/dL 1.5-4. 5 Not Available [facility] ([facility]) [address] [facility], [place], [address], 09/06/2021 08:17:04 09/06/19 22 09/06/2021 COMP. METAB OLIC PANEL (14) A/G ratio 2.1 1.2-2. 2 Not Available [facility] ([facility]) [address] [facility], [place], [address], 09/06/2021 08:17:04 09/06/19 22 09/06/2021 COMP. METAB OLIC PANEL (14) bilirubin, total 0.5 mg/dL 0.0-1. 2 Not Available [facility] ([facility]) [address] [facility] [place], [address], 09/06/2021 08:17:04 09/06/19 22 09/06/2021 COMP. METAB OLIC PANEL (14) alkaline phosphatase 79 IU/L 44-121 Not Available [facility]) [address] [facility] [place], [address], 09/06/2021 08:17:04 09/06/1906 0909/06/2021 COMP. METAB OLIC PANEL (14) AST (SGOT) 16 IU/L 0-40 Not Available [facility] ([facility]) [address] [facility] [place], [address], 09/06/2021 08:17:04 09/06/19 22 09/06/2021 COMP. METAB OLIC PANEL (14) ALT (SGPT) 17 IU/L 0-32 Not Available [facility]) [address] [facility], [place], [address], 09/06/2021 08:17:04 09/06/19 22 09/06/2021 CBC, PLATE LET, NO DIFFE RENTI AL WBC 8.7 x10e3 /uL 3.4-10 .8 Not Available [facility] ([facility]) [address] [facility], [place], [address], 09/06/2021 08:17:05 09/06/19 22 09/06/2021 CBC, PLATE LET, NO DIFFE RENTI AL RBC 5.09 x10e6 /uL 3.77-5 .28 Not Available [facility] ([facility]) [address] [facility], [place], [address], 09/06/2021 08:17:05 09/06/19 22 09/06/2021 CBC, PLATE LET, NO DIFFE RENTI AL hemoglobin 15.4 g/dL 11.1-1 5.9 Not Available [facility] ([facility]) [address] [facility], [place], [address], 09/06/2021 08:17:05 09/06/19 22 09/06/2021 CBC, PLATE LET, NO DIFFE RENTI AL hematocrit 46.4 % 34.0-4 6.6 Not Available [facility] ([facility]) [address] [facility], [place], [address], 09/06/2021 08:17:05 09/06/19 22 09/06/2021 CBC, PLATE LET, NO DIFFE RENTI AL MCV 91 fL 79-97 Not Available [facility] ([facility]) [address] [place], [address], 09/06/2021 08:17:05 09/06/19 22 09/06/2021 CBC, PLATE LET, NO DIFFE RENTI AL MCH 30.3 pg 26.6-3 3.0 Not Available [facility] ([facility]) [address] [place], [address], 09/06/2021 08:17:05 09/06/19 22 09/06/2021 CBC, PLATE LET, NO DIFFE RENTI AL MCHC 33.2 g/dL 31.5-3 5.7 Not Available [facility] ([facility]) [address] [place], [address], 09/06/2021 08:17:05 09/06/19 22 09/06/2021 CBC, PLATE LET, NO DIFFE RENTI AL RDW 12.2 % 11.7-1 5.4 Not Available [facility] ([facility]) [address] [place], [address], 09/06/2021 08:17:05 09/06/19 22 09/06/2021 CBC, PLATE LET, NO DIFFE RENTI AL platelets 242 x10e3 /uL 150-45 0 Not Available [facility] ([facility]) [address] [place], [address], 09/06/2021 08:17:05 09/06/19 22 09/06/2021 CBC, PLATE LET, NO DIFFE RENTI AL NRBC CERTIFIED PHLEBOTOMIST Not Available [facility] ([facility]) [address] [place], [address], 09/06/2021 08:17:05 09/06/19 22 09/06/2021 LIPID PANEL cholesterol, total 151 mg/dL 100-19 9 Not Available [facility] ([facility]) [address] [facility] [place], [address], 09/06/2021 08:17:06 09/06/19 22 09/06/2021 LIPID PANEL triglyceride s 114 mg/dL 0-149 Not Available [facility]) [address] [facility] [place], [address], 09/06/2021 08:17:06 09/06/19 22 09/06/2021 LIPID PANEL HDL cholesterol 60 mg/dL >39 Not Available [facility]) [address] [facility] [place], [address], 09/06/2021 08:17:06 09/06/19 22 09/06/2021 LIPID PANEL VLDL cholesterol sita 20 mg/dL 5-40 Not Available [facility]) [address] [facility] [place], [address], 09/06/2021 08:17:06 09/06/19 22 09/06/2021 LIPID PANEL LDL chol calc ([facility]) 71 mg/dL 0-99 Not Available [facility] [address] [facility] [place], [address], 09/06/2021 08:17:06 09/06/19 22 09/06/2021 LIPID PANEL comment: CERTIFIED PHLEBOTOMIST Not Available [facility] ([facility]) [address] [facility] [place], [address], 09/06/2021 08:17:06 09/06/19 22 09/06/2021 HEMOG LOBIN A1C hemoglobin A1C 5.7 % 4.8-5. 6 above high normal Predi abete s: 5.7 - 6.4 Diabe brijesh: >6.4 Glyce berhane contr ol for adult s with diabe brijesh: <7.0 Not Available [facility] ([facility]) [address] [facility] [place], [address], 09/06/2021 08:17:08 12/27/1912/26/2022 LIPID PANEL cholesterol, total 145 mg/dL 100-19 9 Not Available [facility] [address] [place] [address], [address], 12/27/2022 06:17:50 12/27/1912/26/2022 LIPID PANEL triglyceride s 83 mg/dL 0-149 Not Available [facility] [address] [place] [address], [address], 12/27/2022 06:17:50 12/27/1912/26/2022 LIPID PANEL HDL cholesterol 68 mg/dL 40-999 Not Available [facility] Department [address] [place] [address], [address], 12/27/2022 06:17:50 12/27/1912/26/2022 LIPID PANEL VLDL cholesterol sita 17 mg/dL 5-40 Not Available [facility] [address] [place] [address], [address], 12/27/2022 06:17:50 12/27/1912/26/2022 LIPID PANEL LDL chol calc (nih) 71 mg/dL 0-99 Not Available [facility] Department [address] [place] [address], [address], 12/27/2022 06:17:50 12/27/1912/26/2022 COMP. METAB OLIC PANEL (14) glucose 87 mg/dL 70-99 Not Available [facility] [address] [place], [address], 12/27/2022 06:17:51 12/27/1912/26/2022 COMP. METAB OLIC PANEL (14) BUN 16 mg/dL 8-27 Not Available [facility] [address] [place], [address], 12/27/2022 06:17:51 12/27/1912/26/2022 COMP. METAB OLIC PANEL (14) creatinine 0.68 mg/dL 0.76-1 .27 below low normal Not Available [facility] [address] [place] [address], [address], 12/27/2022 06:17:51 12/27/19 23 12/26/2022 COMP. METAB OLIC PANEL (14) eGFR 97 >=60 Units for eGFR value s are mL/mi n/1.7 3 The eGFR Calcu latio n has not been valid ated for patie nts under the age of 18. If test resul ts are displ ayed for a patie nt under the age of 18, disre xiomara that value . Not Available [facility] [address] [place] [address], [address], 12/27/2022 06:17:51 12/27/19 23 12/26/2022 COMP. METAB OLIC PANEL (14) BUN/creatini ne ratio 24 10-28 Not Available [facility] [address] [place] [address], [address], 12/27/2022 06:17:51 12/27/19 23 12/26/2022 COMP. METAB OLIC PANEL (14) sodium 142 mmol/ L 134-14 4 Not Available [facility] [address] [place] [address], [address], 12/27/2022 06:17:51 12/27/19 23 12/26/2022 COMP. METAB OLIC PANEL (14) potassium 4.4 mmol/ L 3.5-5. 2 Not Available [facility] [address] [place] [address], [address], 12/27/2022 06:17:51 12/27/1912/26/2022 COMP. METAB OLIC PANEL (14) chloride 102 mmol/ L 96-106 Not Available [facility] [address] [place] [address], [address], 12/27/2022 06:17:51 10/11/12/26/2022 COMP. METAB OLIC PANEL (14) carbon dioxide, total 28 mmol/ L 20-29 Not Available [facility] [address] [place], [address], 12/27/2022 06:17:51 12/27/19 23 12/26/2022 COMP. METAB OLIC PANEL (14) calcium 10.5 mg/dL 8.7-10 .3 above high normal Not Available [facility] [address] [place], [address], 12/27/2022 06:17:51 12/27/1912/26/2022 COMP. METAB OLIC PANEL (14) protein, total 6.9 g/dL 6.0-8. 5 Not Available [facility] [address] [place], [address], 12/27/2022 06:17:51 12/27/1912/26/2022 COMP. METAB OLIC PANEL (14) albumin 4.8 g/dL 3.8-4. 8 Not Available [facility] [address] [place], [address], 12/27/2022 06:17:51 12/27/19 23 12/26/2022 COMP. METAB OLIC PANEL (14) globulin, total 2.1 g/dL 1.5-4. 5 Not Available [facility] [address] [place], [address], 12/27/2022 06:17:51 12/27/19 23 12/26/2022 COMP. METAB OLIC PANEL (14) A/G ratio 2.0 1.2-2. 2 Not Available [facility] [address] [place], [address], 12/27/2022 06:17:51 12/27/19 23 12/26/2022 COMP. METAB OLIC PANEL (14) bilirubin, total 0.5 mg/dL 0.0-1. 2 Not Available [facility] [address] [place], [address], 12/27/2022 06:17:51 12/27/1912/26/2022 COMP. METAB OLIC PANEL (14) alkaline phosphatase 78 IU/L 44-121 Not Available [facility] Department [address] [place], [address], 12/27/2022 06:17:51 12/27/1912/26/2022 COMP. METAB OLIC PANEL (14) AST (SGOT) 16 IU/L 0-40 Not Available [facility] [address] [place], [address], 12/27/2022 06:17:51 12/27/1912/26/2022 COMP. METAB OLIC PANEL (14) ALT (SGPT) 19 IU/L 0-32 Not Available [facility] [address] [place], [address], 12/27/2022 06:17:51 12/27/1912/26/2022 CBC, PLATE LET, NO DIFFE RENTI AL WBC 8.1 x10e3 /uL 3.4-10 .8 Not Available [facility] [address] [place], [address], 12/27/2022 06:17:52 12/27/1912/26/2022 CBC, PLATE LET, NO DIFFE RENTI AL RBC 4.93 x10e6 /uL 3.77-5 .28 Not Available [facility] [address] [place], [address], 12/27/2022 06:17:52 12/27/1912/26/2022 CBC, PLATE LET, NO DIFFE RENTI AL hemoglobin 15.0 g/dL 11.1-1 5.9 Not Available [facility] [address] [place], [address], 12/27/2022 06:17:52 12/27/1912/26/2022 CBC, PLATE LET, NO DIFFE RENTI AL hematocrit 45.9 % 34.0-4 6.6 Not Available [facility] [address] [place], [address], 12/27/2022 06:17:52 12/27/1912/26/2022 CBC, PLATE LET, NO DIFFE RENTI AL MCV 93 fL 79-97 Not Available [facility] [address] [place], [address], 12/27/2022 06:17:52 12/27/1912/26/2022 CBC, PLATE LET, NO DIFFE RENTI AL MCH 30.4 pg 26.6-3 3.0 Not Available [facility] [address] [place], [address], 12/27/2022 06:17:52 12/27/1912/26/2022 CBC, PLATE LET, NO DIFFE RENTI AL MCHC 32.7 g/dL 31.5-3 5.7 Not Available [facility] [address] [place], [address], 12/27/2022 06:17:52 12/27/1912/26/2022 CBC, PLATE LET, NO DIFFE RENTI AL RDW 12.2 % 11.5-1 4.5 Not Available [facility] [address] [place], [address], 12/27/2022 06:17:52 12/27/1912/26/2022 CBC, PLATE LET, NO DIFFE RENTI AL platelets 239 x10e3 /uL 150-45 0 Mean Plate let Volum e 10.4 fL 8.9-1 2.7 N Not Available [facility] [address] [place], [address], 12/27/2022 06:17:52 12/27/1912/26/2022 CBC, PLATE LET, NO DIFFE PIO AL NRBC 0 % 0-0 Not Available [facility] [address], [place], [address], 12/27/2022 06:17:52 12/27/1912/27/2022 TSH RFX ON ABNOR MAL TO FREE T4 TSH 1.820 uIU/m L 0.450- 4.500 Not Available [facility] ([facility]) [address] [facility], [place], [address], 12/27/2022 10:12:31 05/14/19 23 05/14/2022 MAMMO , scree manuel, bilat eral No observ ation record ed. [facility] [address] [place], [address], 06/02/2022 13:06:36 05/17/19 24 05/17/2023 MAMMO , scree manuel, bilat eral No observ ation record ed. [facility] [address] [place], [address], 05/20/2023 13:54:57 Result Notes None recorded. 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 2020 Not Available [facility] 08:52:35 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 Not Available [facility] 08:52:35 Pain of right shoulder joint 95966403329 871381 Active 2021 Argelia Harris MD Attn: Accounting ,[address] [facility], [place], [address] , [place] [facility] 2 13:01:32 Pain of right shoulder blade 916582415 Active 2021 Argelia Harris MD Attn: Accounting ,[address] [facility], [place], [address] , [place] [facility] 2 13:01:59 Hyperlipi demia 97877614 Active 2021 Argelia Harris MD Attn: Accounting ,[address] [facility], [place], [address] , [place] [facility] 2 16:27:38 Overweigh t 608440687 Active 2022 Argelia Harris MD Attn: Accounting ,[address] [facility], [place], [address] , [place] [facility] 3 16:20:30 Hematoche skye 815119636 Active 2023 Argelia Harris MD Attn: Accounting ,[address] [place], [address] , [place] [facility] 4 18:18:30 Coronary arteriosc lerosis 66495900 Active Not Available [facility] 08:52:35 Anxiety disorder 364590608 Active Not Available [facility] 08:52:35 Essential hypertens ion 51328696 Active Not Available [facility] 08:52:35 Neuralgia 12994766 Active Not Available [facility] 08:52:35 Neoplasm of breast 580719590 Active Not Available [facility] 08:52:35 Chronic obstructi ve pulmonary disease 84862410 Active Not Available [facility] 08:52:35 Hyperglyc emia 12235322 Active Not Available [facility] 08:52:35 Medicatio n monitorin g Active 2016 Not Available [facility] 08:52:35 Problem Notes None recorded. Procedures Surgical History Date Name Laterality Status Provider Name and Address Organization Details Recorded Time 02/03/20 Vulvar Biopsy completed Phuc [place] [facility] 13:45:27 02/01/20 20 Most Recent Mammogram completed Zeina Ahmadi [place] 02/02/2020 12:05:11 10/30/19 Date of Last Pap Smear completed Zeina Ahmadi [place] [facility] 02/02/2020 12:04:55 04/29/19 19 Colposcopy completed Veronika Muse MD Attn: Accounting,[address] [place], [address], [facility] - [facility] 04/29/2018 14:39:44 04/29/19 19 Endometrial Biopsy completed Veronika Muse MD Attn: Accounting,[address] [place], [address], [facility] - [facility] 04/29/2018 14:40:59 02/16/20 13 Breast Surgery completed Zeina Ahmadi [place] - [facility] 11/08/2016 14:30:55 Angioplasty With Stent completed Beryl Cardenas [place] 07/19/2015 11:21:57 Eye Surgery completed Beryl Cardenas [place] 05/2015 11:21:57 Other completed Beryljessi Cardenas [place] 07/19/19 16 11:21:57 Imaging Results Imaging Date Name Status [facility] Details LastModified Time 05/14/2022 MAMMO, screening, bilateral completed [facility] [address] [place], [address], 06/02/2022 13:06:36 05/17/2023 MAMMO, screening, bilateral completed [facility] [address] [place], [address], 05/20/2023 13:54:57 Procedure Notes None recorded. Medical Equipment None Reported. Allergies No known drug allergies Medications Name Sig Start Date Stop Date Status Note LastModified by Organization Details LastModified Time Prescript ion - Prior Authoriza tion Request 05/14 completed Anastrol e Not Available Not Available Not Available multivita min tablet Take 1 tablet every day by oral route. 06/15 completed Not Available Not Available Not Available cyclobenz aprine 10 mg tablet Take 1 tablet 3 times a day by oral route as needed. 04/10 completed Not Available Not Available Not Available Qvar 80 mcg/actua tion Metered Aerosol oral inhaler Inhale 2 puffs twice a day by inhalati on route. 03/17 completed Not Available Not Available Not Available anastrozo le 1 mg tablet Take 1 tablet(s ) every day by oral route. 03/26 completed Not Available Not Available Not Available atorvasta tin 80 mg tablet TAKE ONE TABLET BY MOUTH EVERY DAY TO LOWER CHOLESTE ROL 2023 active Not Available Not Available Not Avai lable venlafaxi ne ER 37.5 mg capsule,e xtended release 24 hr Take 1 capsule every day by oral route. 03/17 completed Not Available Not Available Not Available albuterol sulfate 2.5 mg/3 mL (0.083 %) solution for nebulizat ion 03/17 completed Not Available Not Available Not Available metronida zole 0.75 % (37.5 mg/5 gram) vaginal gel Insert 1 applicat orful every day by vaginal route at bedtime for 5 days. 06/15 completed Not Available Not Available Not Available clonazepa m 0.5 mg tablet Take 1 tablet twice a day by oral route. 03/17 completed Not Available Not Available Not Available enalapril maleate 2.5 mg tablet Take 1 tablet every day by oral route. 03/17 completed Not Available Not Available Not Available clobetaso l 0.05 % topical cream APPLY A THIN LAYER TO THE AFFECTED AREA(S) BY TOPICAL ROUTE AT BEDTIME 2-3 NIGHTS A WEEK 06/07/ 2021 03/31 /2022 completed Not Available Not Available Not Available Zithromax Z-Abiel 250 mg tablet TAKE 2 TABLETS (500 MG) BY ORAL ROUTE ONCE DAILY FOR 1 DAY THEN 1 TABLET (250 MG) BY ORAL ROUTE ONCE DAILY FOR 4 DAYS 05/12 completed Not Available Not Available Not Available metronida zole 500 mg tablet Take 1 tablet every 12 hours by oral route for 7 days. 06/15 completed Not Available Not Available Not Available clopidogr el 75 mg tablet TAKE ONE TABLET BY MOUTH EVERY DAY TO PREVENT BLOOD CLOTS active Not Available Not Available No t Available sulfameth oxazole 800 mg-trimet hoprim 160 mg tablet Take 1 tablet every 12 hours by oral route for 10 days. 06/15 completed Not Available Not Available Not Available tramadol 50 mg tablet Take 1 tablet 3 times a day by oral route. 04/10 completed Not Available Not Available Not Available Condoms-P rem Lubricate d Take 1 device by miscell. route. 06/15 completed Not Available Not Available Not Available carvedilo l 3.125 mg tablet TAKE ONE TABLET BY MOUTH TWICE DAILY FOR BLOOD PRESSURE & HEART active Not Available Not Available No t Available ciproflox acin 0.3 % eye drops INSTILL 1 DROP left eye every 4 hours 01/12 completed Not Available Not Available Not Available ramipril 2.5 mg capsule TAKE ONE CAPSULE BY MOUTH EVERY DAY FOR BLOOD PRESSURE active Not Available Not Available No t Available polymyxin B sulfate 10,000 unit-trim ethoprim 1 mg/mL eye drops INSTILL ONE DROP IN THE LEFT EYE EVERY THREE HOURS WHILE AWAKE DIRECTED active Not Available Not Available No t Available Advair Diskus 250 mcg-50 mcg/dose powder for inhalatio n Inhale 1 puff twice a day by inhalati on route. 05/16 completed Not Available Not Available Not Available Advair Diskus 500 mcg-50 mcg/dose powder for inhalatio n inhale ONE PUFF BY MOUTH TWICE DAILY 2023 active Not Available Not Available Not Avai lable triamcino lone acetonide 0.025 % topical ointment APPLY TO THE AFFECTED AREA(S) TOPICALL Y TWICE DAILY DIRECTED active Not Available Not Available No t Available nitroglyc feliciano 0.4 mg sublingua l tablet One tab under tongue every 5 mins x 3 tabs 06/15 completed Not Available Not Available Not Available gabapenti n 300 mg capsule Take 1 capsule twice a day by oral route. 03/17 completed Not Available Not Available Not Available aspirin 81 mg chewable tablet Chew 1 tablet every day by oral route. 01/12 completed Not Available Not Available Not Available Replens vaginal gel Insert 1 g twice a day by vaginal route. 01/12 completed Not Available Not Available Not Available mupirocin 2 % topical ointment APPLY A SMALL AMOUNT TO BOTH NASASL CAVITIES TWICE DAILY FOR TEN DAYS 06/15 completed Not Available Not Available Not Available clobetaso l 0.05 % topical ointment APPLY A THIN LAYER TO THE AFFECTED AREA(S) BY TOPICAL ROUTE 2 TIMES PER DAY 01/12 completed Not Available Not Available Not Available Vitamin D2 1,250 mcg (50,000 unit) capsule 03/17 completed Not Available Not Available Not Available Hibiclens 4 % topical liquid Wash entire body daily for ten days 06/15 completed Not Available Not Available Not Available ipratropi um bromide 0.02 % solution for inhalatio n 03/17 completed Not Available Not Available Not Available amoxicill in 500 mg-potass ium clavulana te 125 mg tablet TAKE ONE TABLET BY MOUTH TWICE DAILY FOR 7 DAYS active Not Available Not Available No t Available Ventolin HFA 90 mcg/actua tion aerosol inhaler INHALE 2 PUFFS 4 TIMES A DAY 03/17 completed Not Available Not Available Not Available Premarin 0.625 mg/gram vaginal cream Insert 0.5 g 3 times a week by vaginal route. 06/15 completed Not Available Not Available Not Available chlorhexi dine gluconate 0.12 % mouthwash Place 15 mL every day by mucous membrane route. 06/15 completed Not Available Not Available Not Available Advair Diskus 01/12 completed Not Available Not Available Not Available Advair HFA 230 mcg-21 mcg/actua tion aerosol inhaler Inhale 2 puffs twice a day by inhalati on route. 12/26 completed Not Available Not Available Not Available Symbicort 160 mcg-4.5 mcg/actua tion HFA aerosol inhaler INHALE ONE PUFF BY MOUTH TWICE DAILY active Not Available Not Available No t Available Calcium with Vitamin D 600 mg-10 mcg (400 unit) tablet Take 1 tablet twice a day by oral route. 06/15 completed Not Available Not Available Not Available Vagifem 10 mcg vaginal tablet Insert 1 tablet every other day by vaginal route. 01/12 completed Not Available Not Available Not Available Dulera 200 mcg-5 mcg/actua tion HFA aerosol inhaler 03/17 completed Not Available Not Available Not Available Osphena 60 mg tablet Take 1 tablet every day by oral route. 01/12 completed Not Available Not Available Not Available Vitals Date Recorded Body height Body mass index (BMI) Body weight Body temperature Heart rate Oxygen saturation Oxygen saturation in Arterial blood by Pulse oximetry Systolic blood pressure Diastolic blood pressure Provider Name and Address Organization Details Last Updated DateTime 2 176.53 cm 23 kg/m2 11120.5 9 g 98.1 [degF] 90 /min 93 % 93 % 144 mm[Hg] 84 mm[Hg] Merced Maldonado [place] - [facility] 2 12:31:54 Date Recorded Body height Body mass index (BMI) Body weight Respiratory rate Heart rate Body temperature Oxygen saturation Oxygen saturation in Arterial blood by Pulse oximetry Systolic blood pressure Diastolic blood pressure Provider Name and Address Organization Details Last Updated DateTime 2 176.53 cm 22.4 kg/m2 90727.2 2 g 18 /min 90 /min 98.2 [degF] 99 % 99 % 130 mm[Hg] 80 mm[Hg] Laura Peters [place] - [facility] 2 15:27:15 Date Recorded Body height Body mass index (BMI) Body weight Body temperature Heart rate Oxygen saturation Oxygen saturation in Arterial blood by Pulse oximetry Systolic blood pressure Diastolic blood pressure Provider Name and Address Organization Details Last Updated DateTime 3 176.53 cm 22.1 kg/m2 33422.0 4 g 98.3 [degF] 85 /min 95 % 95 % 138 mm[Hg] 68 mm[Hg] Merced Maldonado [place] [facility] 3 12:52:48 Date Recorded Body height Body mass index (BMI) Body weight Body temperature Oxygen saturation Oxygen saturation in Arterial blood by Pulse oximetry Heart rate Systolic blood pressure Diastolic blood pressure Provider Name and Address Organization Details Last Updated DateTime 3 176.53 cm 20.5 kg/m2 49689.5 2 g 98 [degF] 96 % 96 % 91 /min 130 mm[Hg] 78 mm[Hg] Merced Maldonado [place] [facility] 3 15:38:15 Date Recorded Body height Body mass index (BMI) Body weight Heart rate Oxygen saturation Oxygen saturation in Arterial blood by Pulse oximetry Systolic blood pressure Diastolic blood pressure Provider Name and Address Organization Details Last Updated DateTime 4 176.53 cm 20.1 kg/m2 79685.7 5 g 90 /min 96 % 96 % 138 mm[Hg] 74 mm[Hg] Merced Maldonado [place] [facility] 4 15:16:09 Social History Question Answer Notes LastModified by Organizat ion Details LastModified Time Tobacco Smoking Status Current Every Day Smoker Veronika Muse MD Attn: [facility],[address] [place], [address], [facility] 04/29/2018 13:06:07 Do You Have An Advance Directive? No Information not available 11/08/2016 What Is Your Level Of Alcohol Consumption? Occasional Information not available 11/08/2016 Is Blood Transfusion Acceptable In An Emergency? Yes Information not available 11/08/2016 What Is Your Level Of Caffeine Consumption? Occasional Information not available 11/08/2016 How Much Tobacco Do You Chew? None Information not available 11/08/2016 Are You Currently Employed? No Information not available 11/08/2016 What Type Of Diet Are You Following? REGULAR Information not available 11/08/2016 Which Illicit Or Recreational Drugs Have You Used? Marijuana Information not available 11/08/2016 Do You Or Have You Ever Used E-cigarettes Or Vape? Never Used Electronic Cigarettes Information not available 02/02/2020 Education 2 Year College Informatio n not available 11/08/2016 What Is Your Occupation? Disability Information not available 11/08/2016 Have There Been Any Changes To Your Family Or Social Situation? No Information not available 08/22/2020 Live Alone Or With Others? With Others Mother Information not available 11/08/2016 What Was The Date Of Your Most Recent Tobacco Screening? 07/17/2023 Information not available 07/17/2023 How Many Children Do You Have? 0 Information not available 11/08/2016 Performs Monthly Self-breast Exam? Yes Information not available 11/08/2016 Do You Use Protection During Sex? No Information not available 11/08/2016 What Is Your Relationship Status? Single Information not available 11/08/2016 Seat Belts Used Routinely Yes Information not available 11/08/2016 Are You Sexually Active? Yes Information not available 11/08/2016 Do You Have Smoke And Carbon Monoxide Detectors In Your Home? Yes Information not available 08/22/2020 At What Age Did You Start Smoking Tobacco? 20 Information not available 11/08/2016 Are You Passively Exposed To Smoke? No Information not available 08/22/2020 Do You Or Have You Ever Used Smokeless Tobacco? Never Used Smokeless Tobacco Information not available 02/02/2020 How Much Tobacco Do You Smoke? 1 PPD Information not available 09/14/2020 General Stress Level Low Information not available 11/08/2016 Do You Use Any Illicit Or Recreational Drugs? Yes Information not available 08/22/2020 Do You Use Sunscreen Routinely? No Information not available 11/08/2016 Has Tobacco Cessation Counseling Been Provided? Yes Information not available 04/10/2022 On What Date Was Tobacco Cessation Counseling Provided? 07/17/2023 Information not available 07/17/2023 How Many Years Have You Smoked Tobacco? 35 [email or web address] Information not available 07/19/2015 Have You Used IV Drugs? No Information not available 08/22/2020 Do You Or Have You Ever Used Any Other Forms Of Tobacco Or Nicotine? No Information not available 04/10/2022 Sex: Female Functional Status Question Answer Note LastModified by Organizat ion Details LastModified Time What is your exercise level? Occasional Information not available 11/08/2016 Mental Status None recorded. Family History Relationship Description Onset Age of this Age Resolved Age Notes LastModified by Organization Details LastModified Time Mother Coronary arterioscler osis [email or web address] Not available 2015 11:21:58 Mother Hypercholest [email or web address] Not available 2015 11:21:58 Mother Heart disease [email or web address] Not available 2015 11:21:58 Mother Hypertensive disorder [email or web address] Not available 2015 11:21:58 Father Malignant tumor of lung [email or web address] Not available 2015 11:21:58 Medical History Condition Response Other N High Blood Pressure Y Breast Cancer Y Depression Y COPD Y Blood Clots N Breast Problem Y Anesthesia Complications Y Headaches/Migraines N Anxiety Disorder Y Muscle, Joint, or Bone Problems N Polyps Y Infertility N Acid Reflux (GERD) N Cancer Y Endometriosis N High Cholesterol Y Liver Disease Y Kidney or Bladder Problems N Thyroid Problems N GI Problems N Acne N Eating Disorder N Anemia N Heart Attack ([place]) Y Ovarian Cancer N Diabetes N Blood Transfusions N Seizures/Epilepsy N Abuse/Domestic Violence N Asthma N Hepatitis N Heart Disease Y Pre-Eclampsia N Osteoporosis N Gynecological History Statement/Question Response Abnormal Pap Y STIs/STDs Y HPV Vaccine N Most Recent Mammogram 02/01/2020 Age at Menarche 12 Current Control Method Menopause Age at First Child If Post Menopausal, Age at Menopause 43 Sexually Active? Y Menses Monthly N Date of Last Pap Smear 10/29/2018 Sexual Problems? Y LMP Unknown Desired Control Method None Obstetrics History GPAL:G 1 P 0 0 1 0 Type Value Multiple Births 0 Full Term 0 Induced 1 Spontaneous 0 Premature 0 Living 0 Ectopics 0 Total 1 Immunizations Vaccine Type Date Status Note Provider Nam e and Address Organization Details Recorded Time Tdap 03/06/2016 completed Not Available [facility] 04/04/2019 02:48:30 Past Encounters Encounter ID Performer Location Encounter Start Date Encounter Closed Date Diagnosis/Indication Diagnosis SNOMED-CT Code Diagnosis ICD10 Code Diagnosis Note [id number] MD Cherise Stone (Adult Med) [address] [place] [address] [phone] 07/19/2015 10:54:51 07/19/2015 12:45:46 Coronary arteriosclerosis 68859974 I25.10 Anxiety disorder 06 F41.9 Essential hypertension 28759279 I10 Neuralgia 05647688 M79.2 Neoplasm of breast 18947 6005 D49.3 Chronic ob structive pulmonary disease 93561929 J44.9 [id number] Aleida Chowdhury Cherise (Adult Med) [address] [place] [address] [id number] 08/23/2015 11:37:16 08/23/2015 16:11:47 Essential hypertension 24925764 I10 Neoplasm of breast 36778 6005 D49.3 Chronic ob structive pulmonary disease 44503427 J44.9 Anxiety disorder F41.9 Coronary arteriosclerosis 14690514 I25.10 [id number] Megan Toney is Cherise (Adult Med) [address] [place] [address] [id number] 12/20/2015 12:04:11 12/20/2015 17:09:38 Chronic obstructive pulmonary disease 01246775 J44.9 Will need PA for Advair Coronary arteriosclerosis 91687858 I25.10 Essential hypertension 97472350 I10 Neoplasm of breast 09306 6005 D49.3 Hyperglycemia 95886263 R 73.9 [id number] MD Cherise Stone (Adult Med) [address] [place] [address] [id number] 03/06/2016 15:38:38 03/08/2016 11:32:39 Chronic obstructive pulmonary disease 16211116 J44.9 Anxiety disorder 06 F41.9 Coronary arteriosclerosis 53112886 I25.10 Essential hypertension 00740478 I10 Hyperglycemia 84248829 R 73.9 Neoplasm of breast 71694 6005 D49.3 Active immunization 3387 9002 Z23 [id number] MD Cherise Stone (Adult Med) [address] [place] [address] [phone] 08/08/2016 14:21:47 08/08/2016 18:01:30 Anxiety disorder 750593580 F41.9 Essential hypertension 46079211 I10 Hyperglycemia 39858522 R 73.9 Chronic ob structive pulmonary disease 16223137 J44.9 [id number] MD Cherise Stone (Adult Med) [address] [place] [address] [phone] 10/04/2016 16:36:01 10/10/2016 12:56:05 Neoplasm of breast 418228552 D49.3 WIll contact [facility] re pt assistance for Anastrozol e Chronic ob structive pulmonary disease 62475934 J44.9 Anxiety disorder 9562614 06 F41.9 Coronary arteriosclerosis 53064085 I25.10 Essential hypertension 76925171 I10 [id number] MD Cherise Carmona ([employer]) [address] [place] [address] [phone] 11/08/2016 14:00:25 11/12/2016 12:11:07 Gynecologic examination 85983342 Z01.419 Counseled about WWE and kegel exercises. Refer to hand out. Patient refused to do PAP smear and cultures today because she is self pay. Bacterial vaginosis 4197 81651 N76.0 Counseled about ti Lichen scl erosus et atrophicus of the vulva 84552604 N90.4 Counseled about it. Clobetasol prescribed . Offered vulvar biopsy. Patient refused today because of self pay situation Postmenopa usal bleeding 87842354 N95.0 Counseled about it. Offered doing endometria l biopsy and pelvic ultrasound . She refused to do blood work, ultrasound and endometria l biopsy. counseled about risks of endometria l cancer. she verbalized understand ing and still refuses today. Venereal d isease screening 819454747 Z11.3 offered to patient and she refused Breast lump 31953204 N63 Counseled about it. patient refused diagnostic mammogram. She say she is going to talk to [facility] and decide on it. [id number] MD Cherise Carmona ([employer]) [address] [place] [address] [phone] 12/10/2016 14:19:50 12/11/2016 08:55:16 Gynecologic examination 35042097 Z01.419 [facility] Fibrocysti c disease of breast 66096972 N60.19 d/w patient mammogram result and breast ultrasound result. counseled about it. advised to decrease caffeine. [id number] Argelia Harris MD [facility] (Adult Med) [address] [place] [address] [phone] 02/26/2017 12:00:14 02/26/2017 13:19:43 Essential hypertension 84491063 I10 Hyperglycemia 37649001 R 73.9 Anxiety disorder 0101656 06 F41.9 Chronic ob structive pulmonary disease 40182500 J44.9 Coronary arteriosclerosis 95127208 I25.10 [id number] Argelia Harris MD [facility] (Adult Med) [address] [place] [address] [id number] 03/17/2018 12:33:53 03/17/2018 16:56:29 Essential hypertension 01397315 I10 Hyperglycemia 82442690 R 73.9 Coronary arteriosclerosis 32264799 I25.10 Anxiety disorder F41.9 Chronic ob structive pulmonary disease 00697850 J44.9 Neoplasm of breast 32998 6005 D49.3 [id number] Veronika Muse MD [facility] ([employer]) [address] [place] [address] [id number] 03/26/2018 16:30:16 03/27/2018 09:54:41 Low grade squamous intraepithelial lesion on cervical Papanicolaou smear 7823055611 9105 R87.612 she had it in 2016. Counseled about it and safe sex. Gynecologi c examination 63182663 Z01.419 Counseled about WWE and kegel exercises. Refer to hand out. Lichen scl erosus et atrophicus of the vulva 91518130 N90.4 Counseled about it. Clobetasol prescribed . Offered vulvar biopsy. Patient wanted to come back for it. Postmenopa usal bleeding 93141357 N95.0 Counseled about it. Offered doing endometria l biopsy and pelvic ultrasound . She agrees. She say she has medicare. Venereal d isease screening 090680073 Z11.3 offered to patient and she refused Breast lump 93110414 N63 .0 Counseled about it. patient has order for diagnostic mammogram and breast ultrasound Atrophic vaginitis 91516 000 N95.2 Counseled about it. Positive s creening for depression on PHQ-9 (Patient Health Questionnaire 9) 0532182634 30176 Z13.89 Advised patient to f/u with counselor. Smoker 51397169 F17.785 [id number] MD Cherise Carmona ([employer]) [address] [place] [address] [phone] 04/29/2018 10:03:30 04/30/2018 12:24:42 Low grade squamous intraepithelial lesion on cervical Papanicolaou smear 6553290192 9105 R87.612 Refer to procedure note. Patient did not tolerate procedure. She was using abusive words, angry, very irritable. I explained in a calm way the risk of LGSIL and importance of doing procedure in OR. Also explained patient importance of doing vulvar biopsy at the same time for lichen sclerosis. Patient say she will make follow up appointmen t and was very irritable, angry and left room using abusive words. Postmenopa usal bleeding 90667365 N95.0 counseled about causes, risks of it. offered endometria l biopsy and counseled about procedure. Risks, benefits and indication s for endometria l biopsy procedure fully reviewed. Patient questions answered. Informed consent obtained. she verbalized understand ing and she agrees for it. Refer to procedure note. Advised patient to go to ER if vaginal bleeding more than pad per hour, fever greater than 100.4, severe pelvic pain Lichen scl erosus et atrophicus of the vulva 89520633 N90.4 Counseled about it and risk of vulvar cancer. Clobetasol prescribed last visit. Advised patient to fill it.Also explained patient importance of doing vulvar biopsy in OR because she could not tolerate colposcopy in office. Patient say she will make follow up appointmen t and was very irritable, angry and left room using abusive words. Atrophic vaginitis 41890 000 N95.2 Counseled about it. Advised patient to fill replens. [id number] Phuc Luong ([employer]) [address] [place] [address] 0 05/14/2018 12:41:27 05/14/2018 14:27:38 Abnormal cervical Papanicolaou smear 970799856 R87.619 HPV - Buffy n papillomavirus test negative 125442050 Z11.51 Atrophic vaginitis 82110 000 N95.2 Chronic ob structive pulmonary disease 93362788 J44.9 Gynecologi c examination 06024302 Z01.419 Z11.51 [id number] MD Cherise Stone (Adult Med) [address] [place] [address] [phone] 09/25/2018 16:44:15 09/26/2018 09:47:46 Conjunctivitis 6361941 H10.9 [id number] MD Cherise Stone (Adult Med) [address] [place] [address] [phone] 10/14/2018 17:01:15 10/15/2018 08:54:33 Conjunctivitis 8883543 H10.9 Improved . Pt still concerned about swelling [id number] Phuc Luong ([employer]) [address] [place] [address] [phone] 10/29/2018 12:04:00 10/30/2018 14:29:40 Screening for malignant neoplasm of cervix 318540232 Z12.4 Mass of right breast 809 2628890 1886306 N63.10 Exposure t o sexually transmissible disorder 990625468 Z20.2 Atrophic vaginitis 45928 000 N95.2 Neoplasm of breast 84077 6005 D49.3 Coronary arteriosclerosis 76254063 I25.10 [id number] MD Cherise Stone (Adult Med) [address] [place] [address] [id number] 05/26/2019 16:29:49 05/27/2019 09:22:30 Chronic obstructive pulmonary disease 35835428 J44.9 Coronary arteriosclerosis 98560732 I25.10 Essential hypertension 58141198 I10 Hyperglycemia 93171148 R 73.9 Screening for malignant neoplasm of breast 165698863 Z12.31 [id number] MD Cherise Stone (Adult Med) [address] [place] [address] [id number] 01/13/2020 08:32:44 01/14/2020 12:18:31 Essential hypertension 98270880 I10 Screening for malignant neoplasm of breast 088304535 Z12.31 Hyperglycemia 53490912 R 73.9 [id number] Phuc Luong ([employer]) [address] [place] [address] [id number] 02/03/2020 10:08:36 02/04/2020 10:11:16 Dystrophy of vulva 08994642 N90.4 Atrophic vaginitis 65691 000 N95.2 Gynecologi c examination 14376024 Z01.419 Z11.51 [id number] PATTIE BRENNER ([employer]) [address] [place] [address] [phone] 05/12/2020 15:27:45 05/16/2020 08:21:05 Gynecologic examination 86176304 Z01.411 Last Pap 10/29/2018 LGIL, HPV negative. Patient refused pap today and would like to complete it at her next visit. Plan for follow-up in 2-3 months. Lichen scl erosus et atrophicus 67676819 L90.0 Improving after clobetasol treatment, will initiate maintenanc e therapy. Continue clobetasol at bedtime 2-3x a week x 3 months. [id number] MD Cherise Stone (Adult Med) [address] [place] [address] [id number] 07/14/2020 08:09:19 07/15/2020 11:56:48 Coronary arteriosclerosis 37785554 I25.10 Essential hypertension 52279858 I10 [id number] Phuc Luong ([employer]) [address] [place] [address] [phone] [id number] 08/22/2020 14:58:54 08/26/2020 09:20:48 Gynecologic examination 53761853 Z01.419 Screening mammography 24 176246 Z12.31 Exposure t o sexually transmissible disorder 838406466 Z20.2 Chronic ob structive pulmonary disease 54871561 J44.9 Screening for malignant neoplasm of colon 156615646 Z12.11 Screening for osteoporosis 824124429 Z13.820 Atrophic vaginitis 66606 000 N95.2 Lichen scl erosus et atrophicus 37657670 L90.0 [id number] Phuc Luong ([employer]) [address] [place] [address] [id number] 09/01/2020 15:58:38 09/03/2020 17:31:04 Infection by Trichomonas 19538996 A59.9 Exposure t o sexually transmissible disorder 362581874 Z20.2 Atrophic vaginitis 35927 000 N95.2 [id number] MD Cherise Stone (Adult Med) [address] [place] [address] [id number] 0 09/14/2020 09:21:26 09/15/2020 07:43:26 Furuncle 431090063 L02.92 [id number] MD Cherise Stone (Adult Med) [address] [place] [address] [id number] 02/13/2021 16:12:09 02/14/2021 12:54:14 Coronary arteriosclerosis 94752148 I25.10 Essential hypertension 22297927 I10 Chronic ob structive pulmonary disease 19277661 J44.9 Hyperglycemia 63912810 R 73.9 [id number] MD Cherise Stone (Adult Med) [address] [place] [address] [id number] 06/15/2021 12:22:01 06/16/2021 06:48:35 Pain of right shoulder blade 900470054 M25.871 [id number] MD Cherise Stone (Adult Med) [address] [place] [address] [id number] [id number] 09/05/2021 15:20:59 09/06/2021 12:37:09 Pain of right shoulder blade 550199155 M25.511 Chronic ob structive pulmonary disease 93531245 J44.9 Coronary arteriosclerosis 43388445 I25.10 Essential hypertension 49952148 I10 Hyperglycemia 88163420 R 73.9 Hyperlipidemia 19053746 E78.5 [id number] MD Cherise Stone (Adult Med) [address] [place] [phone] 04/10/2022 12:24:55 04/13/2022 16:21:39 Essential hypertension 29535412 I10 Hyperglycemia 75394323 R 73.9 Hyperlipidemia 88131930 E78.5 [id number] MD Cherise Stone (Adult Med) [address] [place] [address] 12/26/2022 15:19:19 12/31/2022 15:53:14 Chronic obstructive pulmonary disease 28731307 J44.9 Hyperlipidemia 71298754 E78.5 Essential hypertension 73602700 I10 Coronary arteriosclerosis 34452467 I25.10 Overweight 235182014 E66 .3 Screening for malignant neoplasm of breast 853782306 Z12.31 [id number] MD Cherise Stone (Adult Med) [address] [place] [address] 07/17/2023 15:02:33 07/22/2023 20:18:02 Hematochezia 585675184 K92.1 Coronary arteriosclerosis 10266270 I25.10 Chronic ob structive pulmonary disease 27278080 J44.9 Health Concerns Section Related Observation LastModified by Organization Detai ls LastModified Time None Recorded Concern Status LastModified by Organization Details LastModified Time None Recorded Advance Directives Directive N: Payers Encounter Date Sequence Insurance Name Policy Number Policy Morrow Covered Member ID Morrow Member ID Guarantor Name 06/15/2021 2 [place] Lashon Luis [id number] Lashon Luis 06/15/2021 1 [facility] (MEDICARE REPLACEMENT/A DVANTAGE - HMO) [id number] Lashon Luis [id number] Lashon Luis 09/05/2021 2 [place] Lash[place] Luis [id number] Lashon Luis 09/05/2021 1 [facility] (MEDICARE REPLACEMENT/A DVANTAGE - HMO) [id number] Lashon Luis [id number] Lashon Luis 04/10/2022 2 [place] Lashon Luis [id number] Lashon Luis 04/10/2022 1 [facility] (MEDICARE REPLACEMENT/A DVANTAGE - HMO) [id number] Lashon Luis [id number] Lashon Luis 12/26/2022 2 [place] Lashon Luis [id number] Lashon Luis 12/26/2022 1 [facility] (MEDICARE REPLACEMENT/A DVANTAGE - HMO) [id number] Lashon Luis [id number] Lashon Luis 07/17/2023 1 [facility] (MEDICARE REPLACEMENT/A DVANTAGE - HMO) [id number] Lashon Luis [id number] Lashon Luis Notes Date Note Type Note Provider Name and Address Organization Details Recorded Time 06/15/2021 text/html Pain in right upper arm after shoveling snow a few months ago and pain in shoulder blade about five days ago after carrying a heavy bag. has spoken to an orthopedist Argelia Harris MD Attn: Accounting,204 1 [facility], [place], [place], [address] [place] [address], [facility] 06/15/2021 13:17:40 09/05/2021 text/html Needs med refill s. Would like symbicort added to her regimen Argelia Harris MD Attn: Accounting,204 1 [facility], [place], [place], [address] [place] [address], [facility] 09/05/2021 16:35:05 04/10/2022 text/html No new complaint s. Needs med refills Argelia Harris MD Attn: Accounting,204 1 [facility], [place], [place], [address] [place] [address], [facility] 04/10/2022 13:48:04 12/26/2022 text/html Needs med refils . Has had ups and downs Argelia Harris MD Attn: Accounting,204 1 [facility], [place], [place], [address] [place] [address], [facility] 12/26/2022 16:21:02 07/17/2023 text/html Here for her routine evaluation. Wants referral to GI of her choice Argelia Harris MD Attn: Accounting,204 1 [facility], [place], [place], [address] [place] [address], [facility] 07/17/2023 15:39:54 OBGyn Episode No OBEpisode recorded.
--- OUTSIDE RECORDS SUMMARY | 2024-06-16 23:33 | XMS_ITS | Continuity of Care Document ---
Author Organization [facility] Address [address] [place] [address] Phone Care Team Providers Care Diversity Manager Name Role Phone Rosa Maria Moreno Unavailable Unavailable Advance Directives Directive Yes / No Effective Date File Name No Information Encounters Encounter Description Practice Location Reason(s) For Visit Diagnoses Date Provider Providers Copied on Encounter [facility], [id number] [place] [address] [address], [place], [place], [id number], [place] tel:[phone] [facility] [place] No Information Nov-2 7-200 1 Tiffanie Crane. [address] [facility] , [address], [place], [address], [place]. tel:[phone] Family History Family Member Type Diagnosis Age At Onset No Information Payers Payer name Insurance type Covered constitution party ID Authoriza tion(s) No Information Social [...]
--- OUTSIDE RECORDS SUMMARY | 2024-06-16 23:33 | XMS_ITS | CONTINUITY OF CARE DOCUMENT ---
Author Name sami, sami Address Unknown Organization [facility] Address [address] [place] [address] Phone [phone] Care Team Providers Care Cake Press Operator Name Role Phone Hussein HOANG, Jackie Unavailable [phone] Jo-Ann WEIGH AND CHARGE WORKER, Aleida Unavailable [phone] Jo-Ann WEIGH AND CHARGE WORKER, Aleida Unavailable PROBLEMS Condition Status Date Provider Notes Tobacco abuse active Jackie Savage MD HTN essential active Jackie Savage MD Hypercholesterolemia active Jackie Savage MD CAD stent in 2012 active Jackie Savage MD COPD- severe on PFT active Jackie Savage MD Right sided Hormone positive breast cancer s/p lumpectomy and radiation in 2012 active Paolo Mullen MD Leg pain b/l aching worse wi th elevation completed - Jackie Savage MD Chest pain completed - Jackie Savage MD Cardiology examination active Jackie Savage MD Shortness of breath--echo ef nl, fixed defect on stress nuc, 10/2023 active Manuel Parmar ENCOUNTERS Date Type Provider Location Encounter Diag nosis - In-person encounter Office Visit Jackie Savage MD [facility] COPD- severe on PFTShortness of breath--echo ef nl, fixed defect on stress nuc, 10/2023 - In-person encounter Office Visit Jackie Savage MD [facility] Leg pain b/l aching worse with elevationChest painCardiology examination - In-person encounter Office Visit Jackie Savage MD [facility] - In-person encounter Office Visit Jackie Savage MD [facility] - In-person encounter Office Visit Paolo Mullen MD [facility] - In-person encounter Office Visit Paolo Mullen MD [facility] Right sided Hormone positive breast cancer s/p lumpectomy and radiation in 2012 - In-person encounter Office Visit Jackie Savage MD [facility] Right sided Hormone positive breast cancer s/p lumpectomy and radiation in 2012 VITAL SIGNS Date Observation Value Provider Body Mass Index (Ratio) 19.80 kg/m2 Gaurav Savage MD oxygen saturation, oximetry 95 % [facility] weight E&M 138 [lb_av] Gabriela [place] blood pressure, cuff size regular [facility] blood pressure, diastolic 68 mm[Hg] bitha [place] blood pressure, systolic 126 mm[Hg] [facility] [place] pulse rate 97 /min Gabriela [place] respiratory rate E&M 12 /min Gabriela [place] height E&M 70 [in_i] Gabriela [place] Body Mass Index (Ratio) 19.51 kg/m2 Gaurav Savage MD pulse rate 92 /min Gabriela Espinoza blood pressure, cuff size [facility], diastolic 70 mm[Hg] Ta bitha [place] blood pressure, systolic 140 mm[Hg] [facility] [place] oxygen saturation, oximetry 95 % Gabriela [place] weight E&M 136 [lb_av] Gabriela [place] respiratory rate E&M 12 /min Gabriela [place] height E&M 70 [in_i] Gabriela [place] Body Mass Index (Ratio) 22.96 kg/m2 Gaurav Savage MD blood pressure, diastolic 86 mm[Hg] To [facility] blood pressure, systolic 146 mm[Hg] [facility] oxygen saturation, oximetry 98 % [facility] respiratory rate E&M 18 /min [facility] pulse rate 93 /min [facility] weight E&M 160 [lb_av] [facility] height E&M 70 [in_i] [facility] Body Mass Index (Ratio) 20.95 kg/m2 Gaurav Savage MD blood pressure, resting Yes [facility] blood pressure, diastolic 64 mm[Hg] Ki [facility] blood pressure, systolic 130 mm[Hg] Tank [facility] oxygen saturation, oximetry 97 % [facility] respiratory rate E&M 16 /min [facility] pulse rate 88 /min [facility] weight E&M 146 [lb_av] [facility] height E&M 70 [in_i] [facility] blood pressure, diastolic 80 mm[Hg] Dre scotti Julienne blood pressure, systolic 140 mm[Hg] Jyoti Robins pulse rate 83 /min Shanna almazan oxygen saturation, oximetry 97 % Shanna Robins respiratory rate E&M 16 /min Shanna green Body Mass Index (Ratio) 24.10 kg/m2 Anahy Robins weight E&M 168 [lb_av] Shanna Killian lder blood pressure, diastolic 68 mm[Hg] Dre rri Azulelder blood pressure, systolic 84 mm[Hg] Jyoti ri [facility] pulse rate 79 /min Shanna Maria D lder oxygen saturation, oximetry 95 % Shanna Julienne respiratory rate E&M 16 /min Shanna G gabieneerichchi [facility] Body Mass Index (Ratio) 23.67 kg/m2 Higginbotham i [facility] weight E&M 165 [lb_av] Shanna Killian er blood pressure, diastolic 80 mm[Hg] Thanh Pinto blood pressure, systolic 108 mm[Hg] Hollie Pinto pulse rate 78 /min Christopher Peng abhishek oxygen saturation, oximetry 97 % Christopher Pinto respiratory rate E&M 18 /min Chanel Pinto Body Mass Index (Ratio) 23.56 kg/m2 Kyara Pinto weight E&M 164.2 [lb_av] Christopher Mayes polina height E&M 70 [in_i] Christopher Peng radhabalwinder ALLERGIES No Known Drug Allergies RESULTS Date Observation Value Provider Reference Range Interpretation Location 0 anion gap, serum 11.4 [facility] - 0 albumin/globulin ratio, serum 3.2 g/dL [facility] 1.1 - 2.5 High 0 globulin, serum 2.1 [facility] 2.3 - 3.8 Low 0 urea nitrogen/creatinine ratio, serum 13.8 [facility] - 0 Estimated Glomerular Filtration Rate (calc) 78.9 (?) [facility] 59.0 - 0 chloride, serum 102.6 mmol/L [facility] 98.0 - 107.0 0 potassium, serum 4.7 mmol/L [facility] 3.5 - 5.1 0 sodium, serum 142.0 mmol/L [facility] 136[facility] - 145.0 0 creatinine, serum 0.8 mg/dL [facility] 0.5 - 1.0 0 carbon dioxide, venous blood 28.0 mmol/L [facility] 22.0 - 29.0 0 albumin, serum 4.7 g/dL [facility] 3.5 - 5.2 0 calcium, serum 10.2 mg/dL [facility] 8.6 - 10.2 0 aspartate aminotransferase (SGOT), serum 15.0 1/L [facility] 0.0 - 32.0 0 alkaline phosphatase, serum 69.0 1/L [facility] 40.0 - 130.0 0 alanine aminotransferase (SGPT), serum 20.0 1/L [facility] 0.0 - 33.0 0 protein, total, serum 6.8 g/dL [facility] 6.6 - 8.7 0 bilirubin, serum, total 0.4 mg/dL [facility] 0.0 - 1.2 0 urea nitrogen, blood 11.0 mg/dL [facility] 6.0 - 20.0 0 blood glucose, random 111.0 mg/dL [facility] 74.0 - 99.0 High 0 red blood cell distribution width, size density 45.5 fL [facility] - 0 immature granulocytes, percentage of total cells, blood 0.3 % [facility] - 0 nucleated red blood cells as percent of blood leukocytes 0.0 % [facility] - 0 red blood cell (erythrocyte) count, per high power field 0.0 10*3/UL [facility] - 0 eosinophils as percent of blood leukocytes 1.6 % [facility] - 0 neutrophils as percent of blood leukocytes 51.8 % [facility] - 0 Absolute Neutrophils 3.6 CELLS/UL [facility] 1.5 - 7.8 0 basophils as percent of blood leukocytes 0.4 % [facility] - 0 Absolute Basophils 0.0 CELLS/UL [facility] 0.0 - 0.2 0 monocytes as percent of blood leukocytes 5.1 % [facility] - 0 Absolute Monocytes 0.4 CELLS/UL [facility] 0.2 - 1.0 0 lymphocytes as percent of blood leukocytes 40.8 % [facility] - 0 Absolute Lymphocytes 2.8 CELLS/UL [facility] 0.9 - 3.9 0 mean platelet volume 10.4 (?) [facility] - 0 platelet count 227.0 THOUSAND/ UL [facility] 100.0 - 400.0 0 mean corpuscular hemoglobin concentration, RBC 31.8 G/DL [facility] 31.0 - 38.0 0 mean corpuscular hemoglobin, RBC 29.8 pg [facility] 25.0 - 35.0 0 mean corpuscular volume, RBC 93.7 fL [facility] 75.0 - 100.0 0 hematocrit, blood 44.6 % [facility] 35.0 - 55.0 0 hemoglobin, blood 14.2 g/dL [facility] 11.5 - 16.5 0 erythrocyte count, whole blood 4.8 MILLION/U L [facility] 3.5 - 5.5 HISTORY OF MEDICATION USE Medication Status Instructions Dates Provider Indications Com ments albuterol sulfate 90 mcg/actuation HFA aerosol inhaler active Inhale 1-2 puff using inhaler every four hours Manuel Parmar VITAMIN D3 46687 UNIT ORAL CAPSULE completed po q weekly x 8 weeks - Shanna Robins CALCIUM-D 600-400 MG-UNIT ORAL TABLET active by mouth twice a day Jackie Savage MD Nitrostat 0.4 mg tablet, sublingual active Place 1 tablet under tongue as needed Jackie Savage MD Ventolin HFA 90 mcg/actuation HFA aerosol inhaler completed 2 puff four times a day - Manuel Parmar Advair Diskus 500-50 mcg/dose blister with device active 2 puff once a day Jackie Savage MD ASPIRIN 81 MG ORAL TABLET active 1 tablet once a day Jackie Savage MD clonazepam 0.5 mg tablet active twice a day Jackie Savage MD gabapentin 300 mg capsule active twice a day Jackie Savage MD Altace 2.5 mg capsule active once a day Jackie Savage MD anastrozole 1 mg tablet completed once a day - Jackie Savage MD carvedilol 3.125 mg tablet active 1 tablet twice a day Jackie Savage MD Plavix 75 mg tablet active 1 tablet once a day Jackie Savage MD atorvastatin 80 mg tablet active once a day Jackie Savage MD SOCIAL HISTORY Date Observation Value Provider alcohol use no Manuel Galindojeannette smoking/tobacco cess ation, patient education and counseling yes Manuel Galindojeannette number of years as a smoker 35 a Manuel Parmar smoking history, tot al pack/day 1 Manuel Galindoi cigarette use yes Manuel Parmar smoking status Current every day smoker R jose Parmar alcohol use no Manuel Parmar smoking/tobacco cess ation, patient education and counseling yes Manuel Parmar number of years as a smoker 35 a Manuel Galindoi smoking history, tot al pack/day 1 Manuel Galindoi cigarette use yes Manuel Crespozai smoking status Current every day smoker R ialeeann Crespozai social history E&M Patient ramin dominguez smokes every day. 1PPD x 35 years A lcohol Use - no Smoking History: P atient currently smokes every day. P atient has been counseled to quit. Ruthy Mcneill social history reviewed E&M hima mccrayed - no changes required Ruthy Mcneill smoking/tobacco cess ation, patient education and counseling yes Fatoumata Diaz number of years as a smoker 35 a Fatoumata Diaz smoking history, tot al pack/day 1 Tonsha Diaz cigarette use yes Tons Diaz smoking status Current every day smoker T onsedilson Diaz social history reviewed E&M revi ewed - no changes required Jackie Savage MD smoking status Current every day smoker Tahira Elaine smoking/tobacco cess ation, patient education and counseling yes Jose Elaine alcohol use no Jose Elanie number of years as a smoker 35 a Jose Elaine smoking history, tot al pack/day 1 Jose Voam cigarette use yes Jose Elaine social history reviewed E&M revi ewed - no changes required Paolo Mullen MD smoking/tobacco cess ation, patient education and counseling yes Shannaguido Robins alcohol use no Shanna Maria D almazan number of years as a smoker 35 a Shannaguido Robins smoking history, tot al pack/day 1 Shannaguido Robins cigarette use yes Shanna Azul macdonald smoking status Current every day smoker Tahira daly Julienne alcohol use no Paolo Reinoso social history E&M Patient ramin dominguez smokes every day. 1PPD x 35 years A lcohol Use - no Smoking History: P atient currently smokes every day. P atient has been counseled to quit. Paolo Mullen MD social history reviewed E&M revi ewed - no changes required Paolo Mullen MD smoking/tobacco cess ation, patient education and counseling yes Paolo Mullen MD number of years as a smoker 35 a Paolo Mullen MD smoking history, tot al pack/day 1 Paolo Mullen MD cigarette use yes Paolo Mullen MD smoking status Current every day smoker G oneyda Mullen MD social history reviewed E&M revi ewed - no changes required Jackie Savage MD number of years as a smoker 35 a Christopher Pinto smoking history, tot al pack/day 1 Christopherkary Pinto cigarette use yes Christopher fish smoking status Current every day smoker M Aracely Pinto FUNCTIONAL STATUS Date Observation Value Provider HRA, CV Assess/Plan, Angina (inactive) Management Plan continue current therapy Manuel Parmar HRA, CV Assess/Plan, Angina (inactive) Management Plan continue current therapy Ruthy Mcenill HRA, CV Assess/Plan, Angina (inactive) Management Plan continue current therapy Jackie Savage MD HRA, CV Assess/Plan, Angina (inactive) Management Plan continue current therapy, antianginal therapy Liliana Chambers FAMILY HISTORY Family Member Condition Father Family History of Junie ng Cancer Mother Family History of Co ronary Artery Disease: INSURANCE PROVIDERS Payer name Policy type / Coverage type [place] red libertarian ID AARP MEDICARE ADVANTAGE HMO-POS HMO [id number] ADVANCE DIRECTIVES Name Date DISCUSSED - NO DECISION MADE TREATMENT PLAN Date Name Performer Cardiology:This visi t has been a part of the consistent, comprehensive, and ongoing management of the chronic medical condition(s) listed above for the patient. Jackie Savage MD Cardiology Manuel Parmar Cardiology: H er updated medication list for this problem includes: Atorvastatin 80 Mg Tablet (Atorvastatin) ..... Once a day Manuel Parmar Cardiology Manuel Parmar Cardiology: H er updated medication list for this problem includes: Carvedilol 3.125 Mg Tablet (Carvedilol) ..... 1 tablet twice a day Altace 2.5 Mg Capsule (Ramipril) ..... Once a day B P today: 126/68 P rior BP: 140/70 (09/16/2023) Labs Reviewed: C reat: 0.8 (09/15/2015) Manuel Cheriesumit Cardiology Manuel Galindojeannette Cardiology: H er updated medication list for this problem includes: Carvedilol 3.125 Mg Tablet (Carvedilol) ..... 1 tablet twice a day Altace 2.5 Mg Capsule (Ramipril) ..... Once a day Manuel Parmar Cardiology Manuel Parmar Cardiology Jackie Savage MD Cardiology Jackie Savage MD Cardiology Jackie Savage MD Cardiology Jackie Savage MD Cardiology - Jackie Savage MD Cardiology - Jackie Savage MD Cardiology - Jackie Savage MD Cardiology - Jackie Savage MD Cardiology - Jackie Savage MD Cardiology - Jackie Savage MD Cardiology Jackie Savage MD Cardiology Jackie Savage MD Cardiology Jackie Savage MD Cardiology Jackie Savage MD Cardiology Jackie Savage MD Hem/Onc Follow up :P atient counseled on smoking cessation for 5 minutes. Patient does qualify for low dose CT scan for lung cancer screening. Will rediscuss on next office visit. O rders: 9 33 MOD Complex (CPT-57481) Paolo Mullen MD Hem/Onc Follow up :T he patient will continue arimidex for a total of 5 years. She is now two years into her treatment. I will obtain a DEXA scan to rule out drug induced osteoporosis. She will continue calcium + Vit D. She will return in four months for followup. O rders: S NOMED-CT: [id number] Current Medications Documented ([facility]-[id number]) C BC (INCLUDES DIFF/PLT) (6399) C OMPREHENSIVE METABOLIC PANEL W/EGFR (98717) V itamin D, 25 Hydroxy (470758) D exa Scan (dexa) 9 9140 MOD Complex (CPT-60312) Paolo Mullen MD Hem/Onc New Patient :The patient has been on adjuvant AI therapy since 2013. She has had no side effects other than some minor myalgias. I will obtain a DEXA scan to evaluate for drug induced osteoporosis. I have advised Calcium + Vit D supplementation. She will be referred for annual mammogram in December 2015. She will return in four months for follow up. Orders: M ammogram-Bilateral (CPT-77998) D exa Scan (dexa) C BC (INCLUDES DIFF/PLT) (6399) C OMPREHENSIVE METABOLIC PANEL W/EGFR (27617) V itamin D, 25 Hydroxy (710327) 9 6644 MOD C omplex (CPT-15780) Paolo Mullen MD Cardiology Jackie Savage MD Cardiology Jackie Savage MD Cardiology Jackie Savage MD Cardiology Jackie Savage MD Cardiology Jackie Savage MD Cardiology Jackie Savage MD Date Name Stress Exercise Card iolite Complete Echo DLCO - 25658 FRC - 61477 FVC - 99787 Arterial Duplex Bi-L ower EX Stress Regadenoson Complete Echo Dexa Scan Vitamin D, 25 Hydrox y COMPREHENSIVE METABO LIC PANEL W/EGFR CBC (INCLUDES DIFF/P LT) Vitamin D, 25 Hydrox y COMPREHENSIVE METABO LIC PANEL W/EGFR CBC (INCLUDES DIFF/P LT) Dexa Scan Mammogram-Bilateral STR - Adenosine Complete Echo HISTORY OF PROCEDURES Procedure Date Procedure Name Provider Procedure Notes S tatus Complex e/m visit add on Jackie Savage MD completed EKG Jackie Savage MD completed Regadenoson, 4 units Jackie Savage MD completed Cardiolite, 2 units Jackie Savage MD completed SPECT Images Jackie Savage MD complet ed Stress EKG Jackie Savage MD completed EKG Jackie Savage MD completed EKG Jackie Savage MD completed SNOMED-CT: 358033424 965605 Current Medications Documented Jackie Savage MD completed SNOMED-CT: 490514012 511777 Current Medications Documented Paolo Mullen MD completed SNOMED-CT: 342383848 299211 Current Medications Documented Paolo Mullen MD completed Stress EKG Dez Mckeon MD complete d Regadenoson, 4 units Jackie Savage MD completed Cardiolite, 2 units Jackie Savage MD completed SPECT Images Ramiro Forrest MD compl eted SNOMED-CT: 53240515 Physical Exam, Performed: Pulse Exam of Foot Jackie Savage MD completed EKG Jackie Savage MD completed SNOMED-CT: 109806194 065660 Current Medications Documented Jackie Savage MD completed
[2024-06-16 23:37] VITALS: BP 162/90; PULSE 124; RESP 19; TEMP 36.7; O2SAT 95
--- NOTE | 2024-06-16 23:37 | ECG_ITS ---
Test Date: 2024-06-16 23:39:28 Measurements Intervals [place] Rate: 119 P: 0 [place]: 0 QRS: 74 QRSD: 94 T: 66 QT: 305 QTc: 430 Interpretive Statements SINUS TACHYCARDIA BORDERLINE ST ABNORMALITY- ANTEROLAT/INF LEADS BASELINE ARTIFACT- I, II, III, AVR, AVL, AVF ABNORMAL ECG Compared to ECG 12/16/2023 13:43:38 HEART RATE HAS INCREASED Electronically Signed On 06-17-2024 06:08:53 CDT by Taj Fong D.O.
--- NOTE | 2024-06-16 23:48 | ED_ITS ---
HPI - SOB/Dyspnea General Chief Complaint: Shortness of Breath/Dyspnea Stated Complaint: copd cant breath Time Seen by Provider: 06/16/24 23:40 History of Present Illness HPI Narrative: 63-year-old female with a past medical history including advanced COPD, still actively smoking. She also has history of some coronary disease and hypertension. She follows with Dr. Pulliam from pulmonology. Patient presents the emergency department today with a chief complaint of difficulty breathing that feels like her COPD is flaring up. Symptoms going on for last few days associated with some myalgias and she thought she may have caught the flu. Still endorses daily smoking. No chest pain or chest pressure. She has been using her nebulizers at home and her inhalers without significant relief. She states she gets transient relief after nebulization but this is short-lived and goes away. No recent steroids or recent antibiotics. Nonproductive cough, no change in cough or sputum. No back pain, abdominal pain, diarrhea, nausea, vomiting, vision changes or headache. Related Data Home Medications ?Medication ?Instructions ?Recorded ?Confirmed ?Last Taken ?Type atorvastatin 80 mg tablet 80 mg PO DAILY 09/11/22 02/04/24 Unknown History carvedilol 3.125 mg tablet 3.125 mg PO Q12H 09/11/22 02/04/24 Unknown History cholecalciferol (vitamin D3) 62.5 5,000 unit PO QPM 09/11/22 02/04/24 Unknown History mcg (2,500 unit) chewable tablet clopidogrel 75 mg tablet 75 mg PO DAILY 09/11/22 02/04/24 Unknown History multivitamin 1 tablet PO DAILY 09/11/22 02/04/24 Unknown History ramipril 2.5 mg capsule 2.5 mg PO DAILY 09/11/22 02/04/24 Unknown History albuterol sulfate 90 mcg/actuation 2 puff inhalation Q4H PRN 12/16/23 02/04/24 Unknown History aerosol inhaler SOB/wheezing aspirin 81 mg chewable tablet 81 mg PO DAILY 12/16/23 02/04/24 Unknown History (Aspirin Childrens) Allergies Allergy/AdvReac Type Severity Reaction Status Date / Time No Known Allergies Allergy Verified 06/16/24 23:32 Review of Systems 2 Review of Systems: As reviewed above in HPI [facility] Past Medical History Medical History Coronary artery disease Breast cancer Tobacco abuse Chronic obstructive pulmonary disease Positive colorectal cancer screening using Cologuard test Surgical History Surgical History History of coronary artery stent placement History of lumpectomy 2013 Family History Family History Mother Cancer Heart disease Father Cancer Social History Social History Social History: Surrogate medical decision maker: Jesika Cade, sister. Code status: Full code. Smoking packs per day: 1 Smoking cigarettes per day: 20.0 Years smoked: 50 Smoking pack-years: 50.00 Smoking status: Current every day smoker Tobacco type: cigarettes Alcohol intake: never Substance use type: marijuana Other substance usage details: daily marijuana Do You Feel Safe in your Home?: Yes Lack of Transportation: No Lack of Food: Never True Current Housing: I Have Housing Concerned About Future Housing: No Difficulty Paying Gas/Electric Bills: No Difficulty Paying for Meds: No Currently Unemployed: No Education: High School Diploma/GED Difficulty w/ Childcare or Family Care: No Living arrangements: with friend(s) Spiritual care concerns: No Exam 2 Narrative: GENERAL: [Well-appearing, well-nourished, and in no acute distress.] HEAD: [Normocephalic, atraumatic.] EYES: [PERRLA and EOMI.] ENT: Nares clear, no rhinorrhea or epistaxis. Mucous membranes moist. NECK: Supple. CHEST: Diffuse wheezing throughout both lung bermudez with a prolonged expiratory phase, good air entry bilaterally. No tachypnea. HEART: Tachycardic rate but regular rhythm, strong pulses. No murmur heard. [Normal peripheral pulses.] ABDOMEN: [Soft, nondistended], [nontender], [No rigidity or guarding] EXTREMITIES: Normal range of motion. [No edema.] SKIN: Warm, dry, no rash. NEURO: [No focal deficits]. Alert and oriented [x3.] PSYCH: [Normal mood and affect.] Course Vital Signs Vital signs: Vital Signs Temperature 36.7 C 06/16/24 23:37 Pulse Rate 124 H 06/16/24 23:37 Respiratory Rate 19 06/16/24 23:37 Blood Pressure 162/90 H 06/16/24 23:37 Pulse Oximetry 95 06/16/24 23:37 Oxygen Delivery Room Air 06/16/24 23:37 Temperature 36.7 C 06/16/24 23:37 Pulse Rate 87 06/17/24 00:43 Respiratory Rate 16 06/17/24 00:42 Blood Pressure 162/90 H 06/16/24 23:37 Pulse Oximetry 92 06/17/24 00:52 Oxygen Delivery Room Air 06/17/24 00:52 MDM - SOB/Dyspnea MDM Narrative Medical decision making narrative: 63-year-old female with active smoking, extensive COPD history, coronary disease and hypertension. She presents today with signs and symptoms of a COPD exacerbation. She has diffuse wheezing on auscultation with a prolonged expiratory phase. She has also been feeling a nonproductive cough and myalgias over last few days and thinks she may have caught the flu. Differential does include COPD verses bronchospasm versus viral illness versus COVID, pneumonia also possible. Laboratory studies were obtained, IV access for administering Solu-Medrol, magnesium and fluid bolus. Respiratory therapy called to bedside for a treatment initiated with 1 hour of continuous albuterol and Atrovent. VBG obtained as well as EKG. EKG independently interpreted shows sinus tachycardia, prominent P waves consistent with her pulmonary disease history, no ST segment changes or concerns for acute ischemia. Patient was placed on school office assistant and pulse oximetry. Saturating 95% on room air. Does not wear oxygen at home. Patient will be re-evaluated during treatments. Patient was re-evaluated after breathing treatments and has significant improvement in aeration. Patient was ambulatory without any hypoxia. Patient has completed her magnesium infusions and laboratory studies reassuring. X-ray does not show any signs of pneumonia. His a minor white count of 12.5 likely reactive. Normal hemoglobin, normal platelets. Blood gas shows pH is 7.4, mild pCO2 elevations of 40.6, chronic retention with CO3 at 30.3. Chemistry panel otherwise shows no electrolyte deficiencies. Normal renal function, normal glucose. Normal hepatic function. Viral swabs are negative. If patient's clinical improvement after treatments I believe she is a good candidate for an outpatient course of steroids and refill of her nebulizer solutions. She will follow-up with her detective chief which she states she only has an appointment in the upcoming few weeks. She was given return precautions and PCP follow-up instructions as well. Medical Records Attestation: I reviewed the patient's medical records. Lab Data Attestation: I reviewed the patient's lab results. 06/16/24 23:42 06/16/24 23:42 Labs: Lab Results 06/16/24 06/16/24 Range/Units 23:42 23:43 WBC 12.5 H (4.5-10.0) K/mm3 RBC 4.60 (4.2-5.4) M/mm3 Hgb 14.2 (12.0-15.0) g/dL Hct 42.3 (37.0-47.0) % MCV 92.0 (80-100) fl MCH 30.9 (26-34) pg MCHC 33.6 (32-36) g/dl RDW 12.1 (11.5-14.5) % Plt Count 244 (150-375) k/mm3 MPV 9.7 (7.4-10.4) fl Immature Gran % (Auto) 1.2 H (0-0.5) % Neut % (Auto) 75.5 H (45.5-73.1) % Lymph % (Auto) 13.4 L (18.3-44.2) % Motley % (Auto) 9.2 H (2.6-8.5) % Eos % (Auto) 0.5 (0-4.4) % Baso % (Auto) 0.2 (0.2-1.2) % Lymph # (Auto) 1.68 (0.9-3.2) K/mm3 Motley # (Auto) 1.2 H (0.1-0.6) K/mm3 Eos # (Auto) 0.1 (0-0.3) K/mm3 Baso # (Auto) 0.0 (0.0-0.1) K/mm3 Abs Immat Gran (auto) 0.15 H (0.00-0.031) K/mm3 Absolute Neuts (auto) 9.5 H (1.3-6.7) K/mm3 Absolute Nucleated RBC 0.000 (0.0-0.012) K/mm3 Nucleated RBC % 0.0 (0.0-0.2) % Sodium 134 L (137-145) mmol/L Potassium 3.7 (3.4-5.0) mmol/L Chloride 94 L (98-107) mmol/L Carbon Dioxide 31 H (22-30) mmol/L Anion Gap 9 (4-12) mmol/L BUN 9 D (7-17) mg/dL Creatinine 0.57 L (0.7-1.0) mg/dL Estim Creat Clear Calc 85 ml/min Estimated GFR > 60 (59 - ) Glucose 154 H (65-110) mg/dL Calcium 10.4 H (8.4-10.2) mg/dL Total Bilirubin 0.9 (0.2-1.3) mg/dL AST 20 (14-36) U/L ALT 21 (6-35) U/L Alkaline Phosphatase 77 (38-126) U/L Total Protein 7.0 (6.3-8.2) g/dL Albumin 4.2 (3.5-5.1) g/dL Influenza A (RT-PCR) Negative (Negative) Influenza B (RT-PCR) Negative (Negative) RSV (RT-PCR) Negative (Negative) SARS-CoV-2 RNA (RT-PCR) Negative (Negative) ABG Data ABG results: 06/17/24 00:04 VBG pH 7.412 H* VBG pCO2 48.6 H VBG pO2 50.1 H VBG HCO3 30.3 H O2 Delivery Device Not Reportable O2 Liters/Min Not Reportable FiO2 21 Imaging Data Attestation: I personally reviewed and interpreted this imaging study as follows: My impression: Impressions Chest X-Ray 06/17/24 00:14 IMPRESSION: No focal infiltrate or effusion. Critical Care Time Critical Care Time Critical Care Time: Yes Total Critical Care Time: 35 Discharge Plan Discharge Clinical Impression: Acute exacerbation of chronic obstructive pulmonary disease Patient Disposition: Home, Self-Care Condition: Stable Instructions: Antibiotic Form, Wheezing (ED) Additional Instructions: Your lungs are clear, no pneumonia. No COVID or influenza. Her laboratory studies reassuring. We will send you home with course of steroids for your COPD exacerbation as well as refills of your nebulizer solutions. Continue taking your nebulizer solutions at home in addition to the steroids for the next several days. Follow-up with your pulmonology appointment and call your primary doctor for close follow-up visit as well. Return with any emergent concerns or recurrence or worsening of her shortness of breath. Patient Language: Qatari Prescriptions: New prednisone 50 mg tablet 50 mg PO DAILY 5 Days Qty: 5 0RF ipratropium bromide 0.02 % solution 2.5 ml inhalation Q6H PRN (Reason: shortness of breath or wheezing) Qty: 62.5 0RF albuterol sulfate 5 mg/mL solution for nebulization 2.5 mg inhalation Q6H PRN (Reason: shortness of breath or wheezing) Qty: 600 0RF No Action clopidogrel 75 mg tablet 75 mg PO DAILY atorvastatin 80 mg tablet 80 mg PO DAILY ramipril 2.5 mg capsule 2.5 mg PO DAILY carvedilol 3.125 mg tablet 3.125 mg PO Q12H Rx Instructions: must administer with a meal/food multivitamin Tablet 1 tablet PO DAILY cholecalciferol (vitamin D3) 62.5 mcg (2,500 unit) tablet,chewable 5,000 unit PO QPM albuterol sulfate 90 mcg/actuation aerosol powdr breath activated 2 inh inhalation Q4H PRN (Reason: shortness of breath or wheezing) Qty: 1 6RF dsjqvarhiw-hvmozdts-nbwufumvet 160-9-4.8 mcg/actuation HFA aerosol inhaler 2 inh inhalation BID Qty: 10.7 6RF aspirin [Aspirin Childrens] 81 mg Tablet,Chewable 81 mg PO DAILY albuterol sulfate 90 mcg/actuation HFA aerosol inhaler 2 puff INHALATION Q4H PRN (Reason: SOB/wheezing) fluticasone propionate 50 mcg/actuation [place],Suspension 1 spray intranasal Q12HR Qty: 1 0RF (DME) nebulizer and compressor Device See Rx Instructions .Route Qty: 1 0RF Rx Instructions: As directed (DME) nebulizer accessories Kit See Rx Instructions .Route Qty: 1 0RF Rx Instructions: As directed Breleeanntri Aerosphere 160-9-4.8 mcg/actuation HFA aerosol inhaler 2 inh inhalation BID Qty: 10.7 2RF albuterol sulfate 2.5 mg /3 mL (0.083 %) solution for nebulization 2.5 mg inhalation Q6H PRN (Reason: shortness of breath or wheezing) Qty: 90 2RF Follow-up/Referrals: Jo-Ann,Aleida Davidson APRN [Primary Care Provider] - Time of Disposition: 02:16
[2024-06-16] MEDS: MAGNESIUM SULF 2 GM/WATER 50ML 2 GM/50 ML BAG IVPB (23:56)
[2024-06-16] MEDS: methylPREDNISolone SOD SUCC 40 MG VIAL IV PUSH (23:57)
[2024-06-16] MEDS: LACTATED RINGERS 1,000 ML 999 ML IV CONT (23:57)
[2024-06-17] LABS: Alanine Aminotransferase 21 U/L (6-35); Albumin Level 4.2 g/dL (3.5-5.1); Alkaline Phosphatase 77 U/L (38-126); Anion Gap 9 mmol/L (4-12); Aspartate Amino Transferase 20 U/L (14-36); Basophils Percent Auto 0.2 % (0.2-1.2); Bilirubin,Total 0.9 mg/dL (0.2-1.3); Blood Urea Nitrogen 9 mg/dL (7-17); Calcium 10.4 mg/dL (8.4-10.2); Carbon Dioxide 31 mmol/L (22-30); Chloride 94 mmol/L (98-107); Eosinophils Absolute Auto 0.1 K/mm3 (0-0.3); Eosinophils Percent Auto 0.5 % (0-4.4); Estimated CRCL calculation 85 ml/min; Estimated Glomerular Filt Rate > 60; Glucose 154 mg/dL (65-110); Hematocrit 42.3 % (37.0-47.0); Hemoglobin 14.2 g/dL (12.0-15.0); Immature Granulocyte Absolute 0.15 K/mm3 (0.00-0.031); Immature Granulocyte Percent A 1.2 % (0-0.5); Lymphocytes Absolute Auto 1.68 K/mm3 (0.9-3.2); Lymphocytes Percent Auto 13.4 % (18.3-44.2); Mean Corpuscular HGB Conc 33.6 g/dl (32-36); Mean Corpuscular Hemoglobin 30.9 pg (26-34); Mean Platelet Volume 9.7 fl (7.4-10.4); Monocytes Absolute Auto 1.2 K/mm3 (0.1-0.6); Monocytes Percent Auto 9.2 % (2.6-8.5); Neutrophils Absolute Auto 9.5 K/mm3 (1.3-6.7); Neutrophils Percent Auto 75.5 % (45.5-73.1); Platelet Count Result 244 k/mm3 (150-375); Potassium 3.7 mmol/L (3.4-5.0); Red Cell Distribution Width 12.1 % (11.5-14.5); Sodium 134 mmol/L (137-145); White Blood Count 12.5 K/mm3 (4.5-10.0)
[2024-06-17 00:26] LABS: Influenza A QL RT-PCR Negative (Negative); Influenza B QL RT-PCR Negative (Negative); RSV RNA, RT-PCR Negative (Negative); SARS-CoV-2 RNA PCR Negative (Negative)
--- OUTSIDE RECORDS SUMMARY | 2024-06-17 00:26 | XMS_ITS | CONTINUITY OF CARE DOCUMENT ---
Author Name sami, sami Address Unknown Organization [facility] Address [address] [place] [address] Phone [phone] Care Team Providers Care Cloth Brushing And Sueding Supervisor Name Role Phone Hussein HOANG, Jackie Unavailable [phone] Jo-Ann DIRECT MARKETING SPECIALIST, Aleida Unavailable Jo-Ann DIRECT MARKETING SPECIALIST, Aleida Unavailable PROBLEMS Condition Status Date Provider [...] In-person encounter Office Visit Jackie Savage MD [facility] COPD- severe on PFTShortness of breath--echo ef nl, fixed defect on stress nuc, 10/2023 - In-person encounter Office Visit Jackie Savage MD [facility] Leg pain b/l aching worse with elevationChest painCardiology examination - In-person encounter Office Visit Jackie Savage MD [facility] - In-person encounter Office Visit Jackie Savage MD [facility] - In-person encounter Office Visit Paolo Mullen MD [facility] - In-person encounter Office Visit Paolo Mullen MD [facility] Right sided Hormone positive breast cancer s/p lumpectomy and radiation in 2012 - In-person encounter Office Visit Jackie Savage MD [facility] Right sided Hormone positive breast cancer s/p lumpectomy and radiation in 2012 VITAL SIGNS Date Observation Value Provider Body Mass Index (Ratio) 19.80 kg/m2 Gaurav Savage MD oxygen saturation, oximetry 95 % [facility] weight E&M 138 [lb_av] Gabriela Raven blood pressure, cuff size regular [facility] blood pressure, diastolic 68 mm[Hg] bitha Raven blood pressure, systolic 126 mm[Hg] [facility] pulse rate 97 /min Gabriela Raven respiratory rate E&M 12 /min Gabriela Raven height E&M 70 [in_i] Gabriela Raven Body Mass Index (Ratio) 19.51 kg/m2 Gaurav Savage MD pulse rate 92 /min Gabriela Espinoza blood pressure, cuff size [facility], diastolic 70 mm[Hg] Ta bitha Raven blood pressure, systolic 140 mm[Hg] [facility] oxygen saturation, oximetry 95 % Gabriela Raven weight E&M 136 [lb_av] Gabriela Raven respiratory rate E&M 12 /min Gabriela Raven height E&M 70 [in_i] Gabriela Raven Body Mass Index (Ratio) 22.96 kg/m2 Gaurav Savage MD blood pressure, diastolic 86 mm[Hg] To [facility] blood pressure, systolic 146 mm[Hg] [facility] oxygen saturation, oximetry 98 % [facility] respiratory rate E&M 18 /min [facility] pulse rate 93 /min [facility] weight E&M 160 [lb_av] [facility] height E&M 70 [in_i] [facility] Body Mass Index (Ratio) 20.95 kg/m2 Gaurav Savage MD blood pressure, resting Yes [facility] blood pressure, diastolic 64 mm[Hg] Ki [facility] blood pressure, systolic 130 mm[Hg] Tank [facility] oxygen saturation, oximetry 97 % [facility] respiratory rate E&M 16 /min [facility] pulse rate 88 /min [facility] weight E&M 146 [lb_av] [facility] height E&M 70 [in_i] [facility] blood pressure, diastolic 80 mm[Hg] Dre scotti [...] blood pressure, systolic 84 mm[Hg] Jyoti ri [facility] pulse [facility] 79 /min Shanna Maria D lder oxygen saturation, oximetry 95 % Shanna Julienne respiratory rate E&M 16 /min Shanna G [facility] Body Mass Index (Ratio) 23.67 kg/m2 Higginbotham i [facility] weight E&M 165 [lb_av] Shanna Killian [...] - 5.1 0 sodium, serum 142.0 mmol/L [facility] 136.0 - 145.0 0 creatinine, serum 0.8 mg/dL [facility] 0.5 - 1.0 0 carbon dioxide, venous blood 28.0 mmol/L [facility] 22.0 - 29.0 0 albumin, serum 4.7 g/dL [facility] 3.5 - 5.2 0 calcium, serum 10.2 mg/dL [facility] 8.6 - 10.2 0 aspartate aminotransferase (SGOT), serum 15.0 1/L [facility] 0.0 - 32.0 0 alkaline phosphatase, serum 69.0 1/L [facility] 40.0 - 130.0 0 alanine aminotransferase (SGPT), serum 20.0 1/L [facility] 0.0 - 33.0 0 protein, total, serum 6.8 g/dL [facility] 6.6 - 8.7 0 bilirubin, serum, total 0.4 mg/dL [facility] 0.0 - 1.2 0 urea nitrogen, blood 11.0 mg/dL [facility] 6.0 - 20.0 0 blood glucose, random 111.0 mg/dL [facility] 74.0 - 99.0 High 0 red blood cell distribution width, size density 45.5 fL [facility] - 0 immature granulocytes, percentage of total cells, blood 0.3 % [facility] - 0 nucleated red blood cells as percent of blood leukocytes 0.0 % [facility] - 0 red blood cell (erythrocyte) count, per high power field 0.0 10*3/UL [facility] - 0 eosinophils as percent of blood leukocytes 1.6 % [facility] - 0 neutrophils as percent of blood leukocytes 51.8 % [facility] - 0 Absolute Neutrophils 3.6 CELLS/UL [facility] 1.5 - 7.8 0 basophils as percent of blood leukocytes 0.4 % [facility] - 0 Absolute Basophils 0.0 CELLS/UL [facility] [...] every four hours Manuel Parmar VITAMIN D3 [id number] UNIT ORAL CAPSULE completed po q weekly [...] yes Jose Elaine alcohol use no Jose Elaine number of years as a smoker 35 [...] (inactive) Management Plan continue current therapy Ruthy Mcneill HRA, CV Assess/Plan, Angina (inactive) Management Plan continue current therapy Jackie Savage MD HRA, CV Assess/Plan, Angina (inactive) Management Plan continue current therapy, antianginal therapy Liliana Chambers FAMILY HISTORY Family Member Condition Father Family History of Junie ng Cancer Mother Family History of Co ronary Artery Disease: INSURANCE PROVIDERS Payer name Policy type / Coverage type [place] [employer] party ID AARP MEDICARE ADVANTAGE HMO-POS HMO [id number] ADVANCE DIRECTIVES Name Date DISCUSSED - NO [...] on next office visit. O rders: 9 09 MOD Complex (CPT-46742) Paolo Mullen MD Hem/Onc Follow up :T he patient will continue arimidex for a total of 5 years. She is now two years into her treatment. I will obtain a DEXA scan to rule out drug induced osteoporosis. She will continue calcium + Vit D. She will return in four months for followup. O rders: S NOMED-CT: [id number] Current Medications Documented ([facility]-[id number]) C BC (INCLUDES DIFF/PLT) (6399) C OMPREHENSIVE METABOLIC PANEL W/EGFR (88435) V itamin D, 25 Hydroxy (996791) D exa Scan (dexa) 9 1265 MOD Complex (CPT-97087) Paolo Mullen MD Hem/Onc New Patient :The [...] months for follow up. Orders: M ammogram-Bilateral (CPT-65384) D exa Scan (dexa) C BC (INCLUDES DIFF/PLT) (6399) C OMPREHENSIVE METABOLIC PANEL W/EGFR (71137) V itamin D, 25 Hydroxy (087876) 9 1344 MOD C omplex (CPT-94506) Paolo Mullen MD Cardiology Jackie Savage MD Cardiology Jackie Savage MD Cardiology Jackie Savage MD Cardiology Jackie Savage MD Cardiology Jackie Savage MD Cardiology Jackie Savage MD Date Name Stress Exercise Card iolite Complete Echo DLCO - 25570 FRC - 47556 FVC - 59050 Arterial Duplex Bi-L ower EX Stress Regadenoson [...] completed EKG Jackie Savage MD completed SNOMED-CT: 775517526 301192 Current Medications Documented Jackie Savage MD completed SNOMED-CT: 980686060 341518 Current Medications Documented Paolo Mullen MD completed SNOMED-CT: 331746216 446369 Current Medications Documented Paolo Mullen MD completed Stress EKG Dez Mckeon MD complete d Regadenoson, 4 units Jackie Savage MD completed Cardiolite, 2 units Jackie Savage MD completed SPECT Images Ramiro Forrest MD compl eted SNOMED-CT: 95034472 Physical Exam, Performed: Pulse Exam of Foot Jackie Savage MD completed EKG Jackie Savage MD completed SNOMED-CT: 670182190 454248 Current Medications Documented Jackie Savage MD completed
--- OUTSIDE RECORDS SUMMARY | 2024-06-17 00:26 | XMS_ITS | Continuity of Care Document ---
Author Organization [facility] Address [address] [place] [address] Phone Care Team Providers Care Shot Tube Machine Tender Name Role Phone Rosa Maria Moreno Unavailable Unavailable Advance Directives Directive Yes / No Effective Date File Name No Information Encounters Encounter Description Practice Location Reason(s) For Visit Diagnoses Date Provider Providers Copied on Encounter [facility], [address] [place] [address] [address], [place], [place], [id number], [place] tel:[phone] [facility] [place] No Information Nov-2 7-200 1 Tiffanie Crane. [address] , [address], [place], [address], [place]. tel:[phone] Family History Family Member Type Diagnosis Age At Onset No Information Payers Payer name Insurance type Covered democrat ID Authoriza tion(s) No Information Social History [...]
--- OUTSIDE RECORDS SUMMARY | 2024-06-17 00:26 | XMS_ITS | Clinical Summary ---
Author Organization [facility] Address [facility] [place] [address] Care Team Providers Care Asphalt Paver Operator Name Role Phone Argelia Nathan MD Primary Care Provider [phone] Allergies No known active allergies Medications atorvastatin [...] patient's age to complete this topic Insurance [facility] Care Teams Asphalt Paver Operator Relationship Specialty Start Date End Date Argelia Nathan MD [address] [place] [address] PCP - General INTERNAL MEDICINE 06/21/21
[2024-06-17 00:28] LABS: Fractional Inspired Oxygen 21 %; HCO3 VBG 30.3 mEq/l (24.0-30.0); PCO2 VBG 48.6 mmHg (42.0-48.0); PO2 VBG 50.1 mmHg (35.0-45.0)
[2024-06-17] MEDS: ALBUTEROL SULFATE NEB 2.5 MG/3 ML INH 10 MG INHALATION (00:34)
[2024-06-17] MEDS: IPRATROPIUM BR 0.02% INH SOLN 0.5 MG/2.5 ML VIAL 1 MG INHALATION (00:35)
[2024-06-17 00:42] VITALS: PULSE 87; RESP 16
[2024-06-17 00:43] VITALS: PULSE 87
[2024-06-17 00:49] LABS: pH VBG 7.412 (7.300-7.400)
[2024-06-17 00:52] VITALS: O2SAT 92
[2024-06-17 02:45] VITALS: BP 144/89; PULSE 89; RESP 15; O2SAT 95
--- NOTE | 2024-06-17 02:50 | PC.NURSE ---
upon discharge pt states that she does not feel comfortable going home. Pt states I live alone and I have to take care of the house and cook my own meals and I cant even make it to the bathroom without struggling to breathe and feeling like I'm going to pass out Pt states I don't feel any better than when I got here Two RN's explained to her that the doctor does not feel she needs to be admitted because her blood work and chest x-ray look okay, and that she needs to follow up with her PCP and utilize the breathing treatments and steroids he has prescribed for her. Pt reiterates she feels she needs to be admitted. EDP made aware, no further orders at this time.
[2024-06-17 03:05] VITALS: PULSE 89; RESP 26; O2SAT 94
--- NOTE | 2024-06-17 03:35 | PC.NURSE ---
This RN had another conversation to explain things to pt. This RN let pt know that she can always come back if she feels she is not getting better or for any other concerning symptoms she may have. Pt verbalized understanding of treatment plan for at home and agreeable for discharge at this time.
[2024-06-17 04:02] VITALS: PULSE 91; RESP 23; O2SAT 96
== END 2024-06-17 04:05 | disposition home or self-care (01) ==
PROVIDERS: Emergency Provider Student in an Organized Health Care Education/Training Program; PCP Nurse Practitioner
DX: J44.1 Chronic obstructive pulmonary disease with (acute) exacerbation (principal); Z20.822 Contact with and (suspected) exposure to COVID-19; F17.210 Nicotine dependence, cigarettes, uncomplicated; I25.10 Atherosclerotic heart disease of native coronary artery without angina pectoris; Z85.3 Personal history of malignant neoplasm of breast
CPT/HCPCS: 36415; 71046; 80053; 82803; 85025; 87637; 93005; 94640; 96365; 96375; 99284; J2919; J3475; J7120

== ENCOUNTER 2024-10-03 20:44 | Emergency (ER) | payer OTHER, MEDICARE, SELFPAY ==
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
--- OUTSIDE RECORDS SUMMARY | 2024-10-03 20:47 | XMS_ITS | Continuity of Care Document ---
Author Organization [facility] Address [address] [place] [address] Phone Care Team Providers Care Business Intelligence Director Name Role Phone Rosa Maria Moreno Unavailable Unavailable Advance Directives Directive Yes / No Effective Date File Name No Information Encounters Encounter Description Practice Location Reason(s) For Visit Diagnoses Date Provider Providers Copied on Encounter [facility], [address] [place] [address] [address], [place], [place], [id number], [place] tel:[phone] [facility] No Information Nov-2 7-200 1 Tiffanie Crane. [address] , [address], [place], [address], [place]. tel:[phone] Family History Family Member Type Diagnosis Age [...]
--- OUTSIDE RECORDS SUMMARY | 2024-10-03 20:48 | XMS_ITS | Data Portability ---
Author Organization [facility] Ortiz Address [address] [place] [address] Care Team Providers Care Lithostripper Name Role Phone ARGELIA HARRIS Primary Care Provider Unavailabl e Assessment No assessment recorded. Plan of Treatment Reminders Order Date Submit Date Provider Last Modified By Organization Details Last Modified Time Details Appointments None recorded. Lab TSH, ultra-sensi tive, serum 2022 023 THANIA LABALFA, [address] [place] [address], [facility] [address], [place], [address], 10:12:31 CBC 2022 023 THANIA BRITTANI, [address] [place] [address], [address] [place] [address], [place], [address], 06:17:52 lipid panel, serum 2022 023 THANIA LABALFA, [address] [place], [place] [address]brandi Woody, [address] [address], [place], [address], 06:17:50 CMP, serum or plasma 2022 023 THANIA PETER, [address] [place], [place] [address]brandi Mckay, [facility] [address], [place], [address], 06:17:51 HbA1c (hemoglobin A1c), blood 2021 022 THANIA PETER, [facility] [place] [facility], [address], [place], [address], 2 08:17:08 CMP, serum or plasma 2021 022 [facility], [address] [facility], [address], [place], [address], 2 08:17:04 CBC 2021 022 [facility], [address] [facility], [address], [place], [address], 2 08:17:05 lipid panel, serum 2021 022 [facility], [address] [facility], [address], [place], [address], 2 08:17:07 Referral gastroenter ologist referral 2023 024 helena Duncan MD, [address], [address], [place], [address], 4 15:51:13 orthopedic surgeon referral - Pt would prefer appointment at [facility], please contact for appt (referral waived until 06-30-21) 2021 022 CANAL[facility] Rodney Mccann, [address] [facility], [address], [place], [address], 2 11:13:28 Procedures None recorded. Surgeries None recorded. Imaging MAMMO, screening, bilateral 2022 023 [facility] ([facility]), [address] [place], [address], 4 16:12:34 Medication Orders carvedilol 3.125 mg tablet 2022 023 [facility], [address] [place] [address], [id number], 4 17:47:21 ramipril 2.5 mg capsule 2022 023 [facility], [address] [place] [address], [id number], 4 17:47:22 clopidogrel 75 mg tablet 2022 023 [facility], [address] [place] [address], [id number], 4 17:47:22 atorvastati n 80 mg tablet 2022 023 [facility], [address] [place] [address], [id number], 4 15:52:47 Advair Diskus 500 mcg-50 mcg/dose powder for inhalation 2022 023 [facility], [address] [place] [address], [id number], 3 16:45:42 tramadol 50 mg tablet [address] [facility], [address] [place] [address], [id number], 3 13:35:00 ramipril 2.5 mg capsule 2021 022 [facility], [address] [place] [address], [id number], 2 16:41:30 carvedilol 3.125 mg tablet 2021 022 [facility], [address] [place] [address], [id number], 2 16:41:31 Advair Diskus 500 mcg-50 mcg/dose powder for inhalation 2021 022 [facility], [address] [place] [address], [id number], 16:41:31 Symbicort 160 mcg-4.5 mcg/actuati on HFA aerosol inhaler 2021 [facility], [address] [place] [address], [id number], 16:41:31 atorvastati n 80 mg tablet 2021 [facility], [address] [place] [address], [id number], 16:41:31 clopidogrel 75 mg tablet 2021 [facility], [address] [place] [address], [id number], 16:41:30 tramadol 50 mg tablet [address], [address] [place] [address], [id number], 13:35:00 Patient TargetsNo targets recorded. Patient Instructions Encounter Date Encounter Id Patient Instructions Last Modified By Organization Details Last Modified Time 04/10/2022 [id number] learning about high blood sugar [email or web address] Not available 04/10/2022 13:36:00 learning about high blood pressure Not available 04/10/2022 13:36:00 high cholesterol : care instructions [email or web address] Not available 04/10/2022 13:36:00 12/26/2022 [id number] A healthy lifestyle: care instructions [email or web address] Not available 12/26/2022 16:08:03 learning about breast cancer screening [email or web address] Not available 12/26/2022 16:11:30 07/17/2023 [id number] chronic obstructive pulmonary disease (COPD): care instructions [email or web address] Not available 07/17/2023 15:38:33 learning about copd and how to prevent lung infections Not available 07/17/2023 15:38:33 Reason for Referral Orthopedic Surgeon Referral for Pain of right shoulder blade Pain in R shoulder blade and upper arm Pt would prefer appointment at [place] [facility] Pt would prefer appointment at [place] [facility], please contact for appt (referral waived until 06-30-21) Referring Physician: Argelia Harris, Internal Medicine, Encounter Date: 06/15/2021 Radiator Cleaner Referral for Hematochezia Hematochezia Referring Physician: Argelia Harris, Internal Medicine, Encounter Date: 07/17/2023 Results Created Date Observation Date Name Description Value Unit Range Abnormal Flag Note LastModifiedBy Organization Detail LastModifiedTime 08/23/19 22 08/22/2021 COLOG UARD cologuard result Cancel led - Order d not applic able Not Available [facility] (Cologuard Orders Only) [address], [place], [address], 08/22/2021 06:55:49 09/06/19 22 09/06/2021 COMP. METAB OLIC PANEL (14) glucose 97 mg/dL 65-99 Not Available [facility] ([facility]) [address] [place], [address], 09/06/2021 08:17:04 09/06/19 22 09/06/2021 COMP. METAB OLIC PANEL (14) BUN 14 mg/dL 8-27 Not Available [facility] ([facility]) [address] [place], [address], 09/06/2021 08:17:04 09/06/19 22 09/06/2021 COMP. METAB OLIC PANEL (14) creatinine 0.72 mg/dL 0.57-1 .00 Not Available [facility] ([facility]) [address] [place], [address], 09/06/2021 08:17:04 09/06/19 22 09/06/2021 COMP. METAB OLIC PANEL (14) eGFR 94 mL/mi n/1.7 3 >59 Not Available [facility] ([facility]) [address] [facility], [place], [address], 09/06/2021 08:17:04 09/06/19 22 09/06/2021 COMP. METAB OLIC PANEL (14) BUN/creatini ne ratio 19 12-28 Not Available [facility] ([facility]) [address] [facility], [place], [address], 09/06/2021 08:17:04 09/06/19 22 09/06/2021 COMP. METAB OLIC PANEL (14) sodium 142 mmol/ L 134-14 4 Not Available [facility] ([facility]) [address] [facility], [place], [address], 09/06/2021 08:17:04 09/06/19 22 09/06/2021 COMP. METAB OLIC PANEL (14) potassium 4.7 mmol/ L 3.5-5. 2 Not Available [facility] ([facility]) [address] [facility], [place], [address], 09/06/2021 08:17:04 09/06/19 22 09/06/2021 COMP. METAB OLIC PANEL (14) chloride 101 mmol/ L 96-106 Not Available [facility] ([facility]) [address] [facility] [place], [address], 09/06/2021 08:17:04 09/06/19 22 09/06/2021 COMP. METAB OLIC PANEL (14) carbon dioxide, total 28 mmol/ L 20-29 Not Available [facility] ([facility]) [address] [facility] [place], [address], 09/06/2021 08:17:04 09/06/19 22 09/06/2021 COMP. METAB OLIC PANEL (14) calcium 11.0 mg/dL 8.7-10 .3 above high normal Not Available [facility] ([facility]) [address] [facility], [place], [address], 09/06/2021 08:17:04 09/06/19 22 09/06/2021 COMP. METAB OLIC PANEL (14) protein, total 6.9 g/dL 6.0-8. 5 Not Available [facility] ([facility]) [address], [place], [address], 09/06/2021 08:17:04 09/06/19 22 09/06/2021 COMP. METAB OLIC PANEL (14) albumin 4.7 g/dL 3.8-4. 8 Not Available [facility] ([facility]) [address], [place], [address], 09/06/2021 08:17:04 09/06/19 22 09/06/2021 COMP. METAB OLIC PANEL (14) globulin, total 2.2 g/dL 1.5-4. 5 Not Available [facility] ([facility]) [address], [place], [address], 09/06/2021 08:17:04 09/06/19 22 09/06/2021 COMP. METAB OLIC PANEL (14) A/G ratio 2.1 1.2-2. 2 Not Available [facility] ([facility]) [address], [place], [address], 09/06/2021 08:17:04 09/06/19 22 09/06/2021 COMP. METAB OLIC PANEL (14) bilirubin, total 0.5 mg/dL 0.0-1. 2 Not Available [facility] ([facility]) [address], [place], [address], 09/06/2021 08:17:04 09/06/19 22 09/06/2021 COMP. METAB OLIC PANEL (14) alkaline phosphatase 79 IU/L 44-121 Not Available [facility] ([facility]) [address], [place], [address], 09/06/2021 08:17:04 09/06/19 22 09/06/2021 COMP. METAB OLIC PANEL (14) AST (SGOT) 16 IU/L 0-40 Not Available [facility] ([facility]) [address] [facility] [place], [address], 09/06/2021 08:17:04 09/06/19 22 09/06/2021 COMP. METAB OLIC PANEL (14) ALT (SGPT) 17 IU/L 0-32 Not Available [facility] ([facility]) [address] [facility], [place], [address], 09/06/2021 08:17:04 09/06/19 22 09/06/2021 CBC, PLATE LET, NO DIFFE RENTI AL WBC 8.7 x10e3 /uL 3.4-10 .8 Not Available [facility] ([facility]) [address] [facility] [place], [address], 09/06/2021 08:17:05 09/06/19 22 09/06/2021 CBC, PLATE LET, NO DIFFE RENTI AL RBC 5.09 x10e6 /uL 3.77-5 .28 Not Available [facility] ([facility]) [address] [facility], [place], [address], 09/06/2021 08:17:05 09/06/19 22 09/06/2021 CBC, PLATE LET, NO DIFFE RENTI AL hemoglobin 15.4 g/dL 11.1-1 5.9 Not Available [facility] ([facility]) [address] [facility] [place], [address], 09/06/2021 08:17:05 09/06/1909/06/2021 CBC, PLATE LET, NO DIFFE RENTI AL hematocrit 46.4 % 34.0-4 6.6 Not Available [facility] ([facility]) [address] [facility] [place], [address], 09/06/2021 08:17:05 09/06/1906 0909/06/2021 CBC, PLATE LET, NO DIFFE RENTI AL MCV 91 fL 79-97 Not Available [facility] ([facility]) [address] [place], [address], 09/06/2021 08:17:05 09/06/19 22 09/06/2021 CBC, PLATE LET, NO DIFFE RENTI AL MCH 30.3 pg 26.6-3 3.0 Not Available [facility] ([facility]) [address] [place], [address], 09/06/2021 08:17:05 09/06/19 22 09/06/2021 CBC, PLATE LET, NO DIFFE RENTI AL MCHC 33.2 g/dL 31.5-3 5.7 Not Available [facility] ([facility]) [address] [place], [address], 09/06/2021 08:17:05 09/06/19 22 09/06/2021 CBC, PLATE LET, NO DIFFE RENTI AL RDW 12.2 % 11.7-1 5.4 Not Available [facility] ([facility]) [address] [place], [address], 09/06/2021 08:17:05 09/06/19 22 09/06/2021 CBC, PLATE LET, NO DIFFE RENTI AL platelets 242 x10e3 /uL 150-45 0 Not Available [facility] ([facility]) [address] [place], [address], 09/06/2021 08:17:05 09/06/19 22 09/06/2021 CBC, PLATE LET, NO DIFFE RENTI AL NRBC CANDLE MOLDER MACHINE Not Available [facility] ([facility]) [address] [place], [address], 09/06/2021 08:17:05 09/06/19 22 09/06/2021 LIPID PANEL cholesterol, total 151 mg/dL 100-19 9 Not Available [facility] ([facility]) [address] [place], [address], 09/06/2021 08:17:06 09/06/19 22 09/06/2021 LIPID PANEL triglyceride s 114 mg/dL 0-149 Not Available [facility] ([facility]) [address] [place], [address], 09/06/2021 08:17:06 09/06/19 22 09/06/2021 LIPID PANEL HDL cholesterol 60 mg/dL >39 Not Available [facility]) [address] [place], [address], 09/06/2021 08:17:06 09/06/19 22 09/06/2021 LIPID PANEL VLDL cholesterol sita 20 mg/dL 5-40 Not Available [facility] ([facility]) [address] [place], [address], 09/06/2021 08:17:06 09/06/19 22 09/06/2021 LIPID PANEL LDL chol calc ([facility]) 71 mg/dL 0-99 Not Available [facility]) [address] [place], [address], 09/06/2021 08:17:06 09/06/19 22 09/06/2021 LIPID PANEL comment: CANDLE MOLDER MACHINE Not Available [facility] ([facility]) [address] [place], [address], 09/06/2021 08:17:06 09/06/19 22 09/06/2021 HEMOG LOBIN A1C hemoglobin A1C 5.7 % 4.8-5. 6 above high normal Predi abete s: 5.7 - 6.4 Diabe brijesh: >6.4 Glyce berhane contr ol for adult s with diabe brijesh: <7.0 Not Available [facility] ([facility]) [address] [place], [address], 09/06/2021 08:17:08 12/27/1912/26/2022 LIPID PANEL cholesterol, total 145 mg/dL 100-19 9 Not Available [facility] [address] [place], [address], 12/27/2022 06:17:50 12/27/1912/26/2022 LIPID PANEL triglyceride s 83 mg/dL 0-149 Not Available [facility] Department [address] [place] [address], [address], 12/27/2022 06:17:50 12/27/1912/26/2022 LIPID PANEL HDL cholesterol 68 mg/dL 40-999 Not Available [facility] Department [address] [place] [address], [address], 12/27/2022 06:17:50 12/27/1912/26/2022 LIPID PANEL VLDL cholesterol sita 17 mg/dL 5-40 Not Available [facility] Department [address] [place] [address], [address], 12/27/2022 06:17:50 12/27/1912/26/2022 LIPID PANEL LDL chol calc (nih) 71 mg/dL 0-99 Not Available [facility] Department [address] [place] [address], [address], 12/27/2022 06:17:50 12/27/1912/26/2022 COMP. METAB OLIC PANEL (14) glucose 87 mg/dL 70-99 Not Available [facility] Department [address] [place], [address], 12/27/2022 06:17:51 12/27/1912/26/2022 COMP. METAB OLIC PANEL (14) BUN 16 mg/dL 8-27 Not Available [facility] Department [address] [place], [address], 12/27/2022 06:17:51 12/27/1912/26/2022 COMP. METAB OLIC PANEL (14) creatinine 0.68 mg/dL 0.76-1 .27 below low normal Not Available [facility] Department [address] [place] [address], [address], 12/27/2022 06:17:51 12/27/1912/26/2022 COMP. METAB OLIC PANEL (14) eGFR 97 >=60 Units for eGFR value s are mL/mi n/1.7 3 The eGFR Calcu latio n has not been valid ated for patie nts under the age of 18. If test resul ts are displ ayed for a patie nt under the age of 18, disre xiomara that value . Not Available [facility] [address] [place] [address], [address], 12/27/2022 06:17:51 12/27/1912/26/2022 COMP. METAB OLIC PANEL (14) BUN/creatini ne ratio 24 10-28 Not Available [facility] Department [address] [place] [address], [address], 12/27/2022 06:17:51 12/27/1912/26/2022 COMP. METAB OLIC PANEL (14) sodium 142 mmol/ L 134-14 4 Not Available [facility] [address] [place] [address], [address], 12/27/2022 06:17:51 12/27/1912/26/2022 COMP. METAB OLIC PANEL (14) potassium 4.4 mmol/ L 3.5-5. 2 Not Available [facility] [address] [place] [address], [address], 12/27/2022 06:17:51 12/27/1912/26/2022 COMP. METAB OLIC PANEL (14) chloride 102 mmol/ L 96-106 Not Available [facility] [address] [place] [address], [address], 12/27/2022 06:17:51 12/27/19 23 12/26/2022 COMP. METAB OLIC PANEL (14) carbon dioxide, total 28 mmol/ L 20-29 Not Available [facility] [address] [place], [address], 12/27/2022 06:17:51 12/27/19 23 12/26/2022 COMP. METAB OLIC PANEL (14) calcium 10.5 mg/dL 8.7-10 .3 above high normal Not Available [facility] [address] [place], [address], 12/27/2022 06:17:51 12/27/1912/26/2022 COMP. METAB OLIC PANEL (14) protein, total 6.9 g/dL 6.0-8. 5 Not Available [facility] [address] [place], [address], 12/27/2022 06:17:51 12/27/19 23 12/26/2022 COMP. METAB OLIC PANEL (14) albumin 4.8 g/dL 3.8-4. 8 Not Available [facility] [address] [place], [address], 12/27/2022 06:17:51 12/27/19 23 12/26/2022 COMP. METAB OLIC PANEL (14) globulin, total 2.1 g/dL 1.5-4. 5 Not Available [facility] [address] [place], [address], 12/27/2022 06:17:51 12/27/19 23 12/26/2022 COMP. METAB OLIC PANEL (14) A/G ratio 2.0 1.2-2. 2 Not Available [facility] [address] [place], [address], 12/27/2022 06:17:51 12/27/19 23 12/26/2022 COMP. METAB OLIC PANEL (14) bilirubin, total 0.5 mg/dL 0.0-1. 2 Not Available [facility] [address] [place], [address], 12/27/2022 06:17:51 12/27/1912/26/2022 COMP. METAB OLIC PANEL (14) alkaline phosphatase 78 IU/L 44-121 Not Available [facility] Department [address] [place], [address], 12/27/2022 06:17:51 12/27/1912/26/2022 COMP. METAB OLIC PANEL (14) AST (SGOT) 16 IU/L 0-40 Not Available [facility] Department [address] [place], [address], 12/27/2022 06:17:51 12/27/1912/26/2022 COMP. METAB OLIC PANEL (14) ALT (SGPT) 19 IU/L 0-32 Not Available [facility] Department [address] [place], [address], 12/27/2022 06:17:51 12/27/1912/26/2022 CBC, PLATE LET, NO DIFFE RENTI AL WBC 8.1 x10e3 /uL 3.4-10 .8 Not Available [facility] [address] [place], [address], 12/27/2022 06:17:52 12/27/1912/26/2022 CBC, PLATE LET, NO DIFFE RENTI AL RBC 4.93 x10e6 /uL 3.77-5 .28 Not Available [facility] [address] [place], [address], 12/27/2022 06:17:52 12/27/1912/26/2022 CBC, PLATE LET, NO DIFFE RENTI AL hemoglobin 15.0 g/dL 11.1-1 5.9 Not Available [facility] Department [address] [place], [address], 12/27/2022 06:17:52 12/27/1912/26/2022 CBC, PLATE LET, NO DIFFE RENTI AL hematocrit 45.9 % 34.0-4 6.6 Not Available [facility] [address] [place], [address], 12/27/2022 06:17:52 12/27/1912/26/2022 CBC, PLATE LET, NO DIFFE RENTI AL MCV 93 fL 79-97 Not Available [facility] Department [address] [place], [address], 12/27/2022 06:17:52 12/27/1912/26/2022 CBC, PLATE LET, NO DIFFE RENTI AL MCH 30.4 pg 26.6-3 3.0 Not Available [facility] Department [address] [place], [address], 12/27/2022 06:17:52 12/27/1912/26/2022 CBC, PLATE LET, NO DIFFE RENTI AL MCHC 32.7 g/dL 31.5-3 5.7 Not Available [facility] Department [address] [place], [address], 12/27/2022 06:17:52 12/27/1912/26/2022 CBC, PLATE LET, NO DIFFE RENTI AL RDW 12.2 % 11.5-1 4.5 Not Available [facility] Department [address] [place], [address], 12/27/2022 06:17:52 12/27/1912/26/2022 CBC, PLATE LET, NO DIFFE RENTI AL platelets 239 x10e3 /uL 150-45 0 Mean Plate let Volum e 10.4 fL 8.9-1 2.7 N Not Available [facility] Department [address] [place], [address], 12/27/2022 06:17:52 12/27/1912/26/2022 CBC, PLATE LET, NO DIFFE RENTI AL NRBC 0 % 0-0 Not Available [facility] [address], [place], [address], 12/27/2022 06:17:52 12/27/1912/27/2022 TSH RFX ON ABNOR MAL TO FREE T4 TSH 1.820 uIU/m L 0.450- 4.500 Not Available [facility] ([facility]) [address] [facility], [place], [address], 12/27/2022 10:12:31 05/14/1905/14/2022 MAMMO , scree manuel, bilat eral No observ ation record ed. [facility] Orders [address] [place], [address], 06/02/2022 13:06:36 05/17/19 24 05/17/2023 MAMMO , scree manuel, bilat eral No observ ation record ed. [facility] [address] [place], [address], 05/20/2023 13:54:57 Result Notes None recorded. Problems Name Problem SNOMED Code Status Onset Date Resolution Date Notes Provider Name and Address Organization Details Recorded Time Coronary arteriosc lerosis 83297345 Active Not Available [facility] 08:52:35 Anxiety disorder 354369917 Active Not Available [facility] 08:52:35 Essential hypertens ion 21311488 Active Not Available [facility] 08:52:35 Neuralgia 42577413 Active Not Available [facility] 08:52:35 Neoplasm of breast 915141434 Active Not Available [facility] 08:52:35 Chronic obstructi ve pulmonary disease 38263695 Active Not Available [facility] 08:52:35 Hyperglyc emia 68686591 Active Not Available [facility] 08:52:35 Medicatio n monitorin g Active 2016 Not Available [facility] 1 08:52:35 Conjuncti vitis 7573632 Active 2018 Not Available [facility] 1 08:52:35 Screening for malignant neoplasm of breast Active 2019 Not Available [facility] 1 08:52:35 Lichen sclerosus et atrophicu s Active 2019 Not Available [facility] 1 08:52:35 Dystrophy of vulva 50226267 Active 2020 Not Available [facility] 1 08:52:35 Atrophic vaginitis 35978537 Active 2020 Not Available [facility] 1 08:52:35 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 Not Available [facility] 1 08:52:35 Furuncle 385424429 Active 2020 recurrent Not Available [facility] 1 08:52:35 Pain of right shoulder joint 75251825198 235094 Active 2021 Argelia Harris MD Attn: Accounting ,[address] [place], [address] , [place] [facility] 2 13:01:32 Pain of right shoulder blade 308772962 Active 2021 Argelia Harris MD Attn: Accounting ,[address] [place], [address] , [place] [facility] 2 13:01:59 Hyperlipi demia 46602889 Active 2021 Argelia Harris MD Attn: Accounting ,[address] [place], [address] , [place] [facility] 2 16:27:38 Overweigh t 194332744 Active 2022 Argelia Harris MD Attn: Accounting ,[address] [place], [address] , [place] [facility] 3 16:20:30 Hematoche skye 691458157 Active 2023 Argelia Harris MD Attn: Accounting ,[address] [facility], [place], [address] , [facility] 18:18:30 Problem Notes None recorded. Procedures Surgical History Date Name Laterality Status Provider Name and Address Organization Details Recorded Time 02/03/20 20 Vulvar Biopsy completed Phuc [place] - [facility] 0[facility] 13:45:27 02/01/20 20 Most Recent Mammogram completed Zeina Ahmadi [place] - [facility] 02/02/2020 12:05:11 10/30/19 19 Date of Last Pap Smear completed Zeina Ahmadi [place] - [facility] 02/02/2020 12:04:55 04/29/19 19 Colposcopy completed Veronika Muse MD Attn: Accounting,[address] [facility], [place], [address], [facility] - [facility] 04/29/2018 14:39:44 04/29/19 19 Endometrial Biopsy completed Veronika Muse MD Attn: Accounting,[address] [facility], [place], [address], [facility] - [facility] 04/29/2018 14:40:59 02/16/20 13 Breast Surgery completed Zeina Ahmadi [place] - [facility] 11/08/2016 14:30:55 Angioplasty With Stent completed Beryljessi Cardenas [facility] 07/19/2015 11:21:57 Eye Surgery completed Beryljessi Cardenas [facility] 05/2015 11:21:57 Other completed Beryljessi Cardenas [facility] 07/19/19 16 11:21:57 Imaging Results None recorded. Procedure Notes None recorded. Medical Equipment None [...] ROUTE AT BEDTIME 2-3 NIGHTS A WEEK 06/15 completed Not Available Not Available Not [...] in Arterial blood by Pulse oximetry Systolic And Diastolic Provider Name and Address Organization Details Last Updated DateTime 3 176.53 cm 22.1 kg/m2 32112.0 4 g 98.3 [degF] 85 /min 95 % 95 % 138/68 mm[Hg] Merced Maldonado MA [facility] 3 12:52:48 Date Recorded Body height Body mass index (BMI) Body weight Body temperature Heart rate Oxygen saturation Oxygen saturation in Arterial blood by Pulse oximetry Systolic And Diastolic Provider Name and Address Organization Details Last Updated DateTime 2 176.53 cm 23 kg/m2 15607.5 9 g 98.1 [degF] 90 /min 93 % 93 % 144/84 mm[Hg] Merced Maldonado MA [facility] 2 12:31:54 Date Recorded Body height Body mass index (BMI) Body weight Heart rate Oxygen saturation Oxygen saturation in Arterial blood by Pulse oximetry Systolic And Diastolic Provider Name and Address Organization Details Last Updated DateTime 4 176.53 cm 20.1 kg/m2 17308.7 5 g 90 /min 96 % 96 % 138/74 mm[Hg] Merced aMldonado MA [facility] 4 15:16:09 Date Recorded Body height Body mass index (BMI) Body weight Respiratory rate Heart rate Body temperature Oxygen saturation Oxygen saturation in Arterial blood by Pulse oximetry Systolic And Diastolic Provider Name and Address Organization Details Last Updated DateTime 2 176.53 cm 22.4 kg/m2 58016.2 2 g 18 /min 90 /min 98.2 [degF] 99 % 99 % 130/80 mm[Hg] Laura Peters MA [facility] 2 15:27:15 Date Recorded Body height Body mass index (BMI) Body weight Body temperature Oxygen saturation Oxygen saturation in Arterial blood by Pulse oximetry Heart rate Systolic And Diastolic Provider Name and Address Organization Details Last Updated DateTime 3 176.53 cm 20.5 kg/m2 23496.5 2 g 98 [degF] 96 % 96 % 91 /min 130/78 mm[Hg] Merced Maldonado [place] [facility] 3 15:38:15 Social History Question Answer Notes LastModified by Organizat ion Details LastModified Time Tobacco Smoking Status Current Every Day Smoker Veronika Muse MD Attn: Accounting[address] [place], [address], [place] [facility] 04/29/2018 13:06:07 Do You Have An Advance Directive? No Information not available 11/08/2016 Is Blood Transfusion Acceptable In An Emergency? Yes Information not available 11/08/2016 What Is Your Level Of Caffeine Consumption? Occasional Information not available 11/08/2016 How Much Tobacco Do You Chew? None Information not available 11/08/2016 What Type Of Diet Are You Following? REGULAR Information not available 11/08/2016 Which Illicit Or Recreational Drugs Have You Used? Marijuana Information not available 11/08/2016 Education 2 Year College Informatio n not available 11/08/2016 Have There Been Any [...] To Smoke? No Information not available 08/22/2020 How Much Tobacco Do You Smoke? 1 PPD Information not available 09/14/2020 General Stress Level Low Information not available 11/08/2016 Do You Use Sunscreen Routinely? No Information not available 11/08/2016 Has Tobacco Cessation Counseling Been Provided? Yes Information not available 04/10/2022 On What Date Was Tobacco Cessation Counseling Provided? 07/17/2023 Information not available 07/17/2023 How Many Years Have You Smoked Tobacco? 35 [email or web address] Information not available 07/19/2015 Have You Used IV Drugs? No Information not available 08/22/2020 Sex: Female Functional Status Question Answer Note LastModified by Organizat ion Details LastModified Time Do you use any illicit or recreational drugs? Yes Information not available 08/22/2020 Do you or have you ever used any other forms of tobacco or nicotine? No Information not available 04/10/2022 What is your level of alcohol consumption? Occasional Information not available 11/08/2016 Do you or have you ever used smokeless tobacco? Never used smokeless tobacco Information not available 02/02/2020 Are you currently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
--- OUTSIDE RECORDS SUMMARY | 2024-10-03 20:48 | XMS_ITS | Clinical Summary ---
Author Organization [facility] Address [facility] [place] [address] Care Team Providers Care Medicinal Chemist Name Role Phone Argelia Nathan MD Primary Care Provider Unavail able Allergies No known active allergies Medications atorvastatin [...] 9:16 AM CDT Height 177.8 cm (5' 10) 06/27/2021 9:16 AM CDT Body Mass Index 22.1 06/27/2021 9:16 AM CDT Plan of Treatment Health Maintenance Due Date Last Done Comments Colorectal Cancer Screening Colonoscopy (10 Years) 1958 Hepatitis C 1976 Pneumococcal Vaccine: 50+ Ye ars (1 of 2 - PCV) 1977 Mammogram Screening 1998 Zoster Vaccines (1 of [...] patient's age to complete this topic Insurance [facility] [place] [address] Care Teams Medicinal Chemist Relationship Specialty Start Date End Date Argelia Nathan MD PCP - General INTERNAL MEDICINE 06/21/21
[2024-10-03 20:53] VITALS: BP 172/88; PULSE 107; RESP 18; TEMP 36.1; O2SAT 95
[2024-10-03 21:30] VITALS: BP 132/87; PULSE 81; RESP 18; TEMP 36.6; O2SAT 99
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
--- OUTSIDE RECORDS SUMMARY | 2024-10-03 22:33 | XMS_ITS | Clinical Summary ---
Author Organization [facility] Address [facility] [place] [address] Care Team Providers Care Bedspread Folder Name Role Phone Argelia Nathan MD Primary [...] patient's age to complete this topic Insurance [facility] [address] Care Teams Bedspread Folder Relationship Specialty Start Date End Date Argelia Nathan MD PCP - General INTERNAL MEDICINE 06/21/21
--- OUTSIDE RECORDS SUMMARY | 2024-10-03 22:33 | XMS_ITS | Continuity of Care Document ---
Author Organization [facility] Address [address] [place] [address] Phone Care Team Providers Care Rubber Liner Name Role Phone Rosa Maria Moreno Unavailable Unavailable Advance Directives Directive Yes / No Effective Date File Name No Information Encounters Encounter Description Practice Location Reason(s) For Visit Diagnoses Date Provider Providers Copied on Encounter [facility], [address] [place] [address] [address], [place], [place], [id number], [place] tel:[phone] [facility] [place] No Information Nov-2 7-200 1 Tiffanie Crane. [address] [facility] , [address], [place], [address], [place]. tel:[phone] Family History Family Member Type Diagnosis Age At Onset No Information Payers Payer name Insurance type Covered republican ID Authoriza tion(s) No Information Social History [...]
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
--- NOTE | 2024-10-04 01:46 | PC.NURSE ---
Pt ambulatory to bathroom with steady gait.
[2024-10-04 03:47] VITALS: BP 157/94; PULSE 93; RESP 20; O2SAT 94
== END 2024-10-04 03:50 | disposition home or self-care (01) ==
PROVIDERS: Emergency Provider Student in an Organized Health Care Education/Training Program; PCP Nurse Practitioner
DX: S20.212A Contusion of left front wall of thorax, initial encounter (principal); R91.1 Solitary pulmonary nodule; I25.10 Atherosclerotic heart disease of native coronary artery without angina pectoris; J44.9 Chronic obstructive pulmonary disease, unspecified; F17.210 Nicotine dependence, cigarettes, uncomplicated; Z95.5 Presence of coronary angioplasty implant and graft; Z85.3 Personal history of malignant neoplasm of breast; Z79.02 Long term (current) use of antithrombotics/antiplatelets; Z79.899 Other long term (current) drug therapy; Z79.82 Long term (current) use of aspirin; V43.52XA Car driver injured in collision with other type car in traffic accident, initial encounter
CPT/HCPCS: 71045; 71250; 99284

== ENCOUNTER 2025-01-18 08:04 | Outpatient (CLI) | payer MEDICARE, SELFPAY ==
--- OUTSIDE RECORDS SUMMARY | 2000-12-12 03:45 | XMS_ITS | Continuity of Care Document ---
Author Organization [facility] Address [address] [place] [address] Phone Care Team Providers Care Geological Technician Name Role Phone Rosa Maria Moreno Unavailable Unavailable Advance Directives Directive Yes / No Effective Date File Name No Information Encounters Encounter Description Practice Location Reason(s) For Visit Diagnoses Date Provider Providers Copied on Encounter [facility], [id number] [place] [address] [address], [place], [place], [id number], [place] tel:[phone] [facility] No Information Nov-2 7-200 1 Tiffanie Crane. [address] [facility] [address] , [address], [place], [address], [place]. tel:[phone] Family History Family Member Type Diagnosis Age At Onset No Information Payers Payer name Insurance type Covered green party ID Authoriza tion(s) No Information Social History Type Description Quantity Date Captured Comments Sex Female Smoking Status No Information Chief Complaint And Reason For Visit No Information Reason For Referral Reason For Referral No Information History Of Present Illness Encounter Date Complaint History Of Prese nt Illness No Information Functional Status Date Functional Assessmen t No Information Instructions Date Instruction Additional Infor mation No Information Assessments Type Assessment Date No Information Patient Care Teams Name Effective Dates (start - stop) Status Members No Information
--- NOTE | ~2025-01-18 | CT_ITS ---
EXAMINATION:CT diagnostic chest wo con DATE: 01/18/2025 08:20 INDICATION: Solitary pulmonary nodule. TECHNIQUE: Computed tomography (CT) of the chest was performed without intravenous contrast. Automated exposure control and iterative reconstruction technique were employed. The dose-length product (DLP) was 67.55 mGy-cm. COMPARISON: Chest CT 10/04/2024 FINDINGS: There is moderate emphysema. There is a 9 mm nodule in right upper lobe. Calcified right lung nodules and calcified right hilar lymph nodes are consistent with old granulomatous disease. No pleural effusion. The heart size is normal. There are coronary artery calcifications. No pericardial effusion. There are surgical clips in right axilla. There is mild thoracic spondylosis. IMPRESSION: 1. 9 mm right upper lobe pulmonary nodule, stable from 10/04/24, probably benign. Noncontrast low-dose chest CT is recommended in 6 months. 2. Moderate emphysema. Reviewed, dictated and finalized at location E. [facility]PAR[facility] T[facility]OR IMPRESSION: 1. 9 mm right upper lobe pulmonary nodule, stable from 10/04/24, probably benign . Noncontrast low-dose chest CT is recommended in 6 months. 2. Moderate emphysema.
--- OUTSIDE RECORDS SUMMARY | 2025-01-18 08:09 | XMS_ITS | Clinical Summary ---
Author Organization [facility] Address [facility] [place] [address] Care Team Providers Care Tool Dispatcher Name Role Phone Argelia Nathan MD Primary [...] 1998 Zoster Vaccines (1 of 2) 2008 Annual Medicare Wellness Visit 12/25/2023 COVID-19 Vaccine (1 - 2024-2 6 season) 2024 Influenza Adult (#1) 2024 DTaP, Tdap and Td Vaccines ( 2 - Td or Tdap) 03/06/2026 03/06/2016 RSV Immunization or 60+ Years (1 - 1-dose 75+ series) 2033 Dexa Scan (General) Completed 08/22/2020 Hepatitis A Vaccines Aged Out No long er eligible based on patient's age to complete this topic Meningococcal B Vaccine Aged Out No l onger eligible based on patient's age to complete this topic Meningococcal Vaccine Aged Out No tiesha skyler eligible based on patient's age to complete this topic RSV Immunizations Under 20 Months Aged Out No longer eligible based on patient's age to complete this topic Insurance [facility] MEDIC[facility] Care Teams Tool Dispatcher Relationship Specialty Start Date End Date Argelia Nathan MD PCP - General INTERNAL MEDICINE 06/21/21
== END 2025-01-18 08:05 | disposition home or self-care (01) ==
PROVIDERS: PCP Nurse Practitioner; Visit Provider Nurse Practitioner Family
DX: R91.1 Solitary pulmonary nodule (principal); J43.9 Emphysema, unspecified
CPT/HCPCS: 71250